=== PATIENT | female | born 1960 | race Caucasian/White ===

== ENCOUNTER 2021-11-16 16:20 | Emergency (ER) | payer BC, SELFPAY ==
[2021-11-16 17:10] VITALS: BP 173/81; PULSE 80; RESP 16; TEMP 36.4; O2SAT 96; BMI 27.6
--- NOTE | 2021-11-16 17:27 | XRR_ITS ---
PROCEDURE INFORMATION: Exam: XR Pelvis Exam date and time: 11/16/2021 6:02 PM Age: 61 years old Clinical indication: Injury or trauma; Fall; Blunt trauma (contusions or hematomas); Bilateral; Pelvic region TECHNIQUE: Imaging protocol: XR pelvis. Views: 1 or 2 view. COMPARISON: No relevant prior studies available. FINDINGS: Bones/joints: Unremarkable. No acute fracture. Soft tissues: Unremarkable. XR/XR pelvis 1-2V* [id number] IMPRESSION: No acute findings.
--- NOTE | 2021-11-16 17:28 | ED_ITS ---
HPI - Back Pain/Injury General: Chief Complaint: Back Pain/Injury Stated Complaint: fall 3 1/2ft on concrete/bottom injury Time Seen by Provider: 11/16/21 17:28 History of Present Illness: 61-year-old female comes in today for complaints of injury to the low back and pelvis area. Patient was sitting in a hammock chair when it came out of the rafter causing her to fall to the ground. Patient lost immediate control of her urine at that time. Patient has been able to maintain control since. Patient denies any prior back injury. Patient appears in moderate pain. Patient has been ambulatory since the incident. Review of Systems General: Reports: 10 or more systems reviewed and unremarkable except in HPI and below Resp: Denies: dyspnea : Reports: difficulty voiding Musc: Reports: back pain Physical Exam Const: COMMON NORMALS: alert HENMT: COMMON NORMALS: atraumatic HEAD & SCALP: atraumatic Neck/C-Spine: COMMON NORMALS: full ROM Resp: COMMON NORMALS: normal respiratory effort Cardio: COMMON NORMALS: regular rate RATE: regular rate Back/Pelvis: LUMBAR SPINE/LOWER BACK: Yes lumbar spinal tenderness Lumbar spinal tenderness location: L5, Yes paraspinal muscle tenderness and Yes straight leg raise negative bilaterally Extremity: COMMON NORMALS: normal to inspection Neuro: SENSORIUM/ORIENTATION: Yes alert Psych: COMMON NORMALS: cooperative Skin: COMMON NORMALS: no rashes or lesions noted GENERAL SKIN EXAM: no rashes or lesions noted Course Vital Signs: Vital signs: Vital Signs Temperature 97.6 F 11/16/21 17:10 Pulse Rate 80 11/16/21 17:10 Respiratory Rate 16 11/16/21 17:10 Blood Pressure 173/81 11/16/21 17:10 Pulse Oximetry 96 11/16/21 17:10 MDM - Back Pain/Injury Medical Decision Making 61-year-old female comes in today with low back pain after a fall. Patient was sent in a hammock swing when it came out of its support causing her to fall directly on her buttocks. Patient had some significant low back pain and reports loss of bladder control. Patient is able to control her bladder at this time. On exam patient has some tenderness around L5. Patient can bear weight. Differential diagnosis includes lumbar vertebra fracture, intervertebral disc disease, facet arthropathy. X-ray of the pelvis indicated no fracture. CT of the lumbar spine noted some mild disc bulging but without significant spinal cord impingement. Reviewed exam with patient with recommendations for treatment and follow-up. Patient reported understanding and agreed to plan. Labs Radiology Impressions Pelvis X-Ray 11/16/21 17:27 IMPRESSION: No acute findings. Lumbar Spine CT 11/16/21 17:39 IMPRESSION: 1. Negative for fracture or dislocation. 2. Scattered vascular calcifications. 3. L3-L4 broad-based disc bulge with mild spinal canal and bilateral foraminal narrowing. 4. L4-L5 broad-based disc bulge with mild spinal canal and bilateral foraminal narrowing. 5. L5/S1 broad-based disc bulge with mild spinal canal and bilateral foraminal narrowing. 6. Small amount of air seen about the left L4-L5 facet joint, nonspecific, negative for fluid collection to suggest an inflammatory or infectious process. Discharge Plan Discharge Patient Disposition: Home Clinical Impression: Discogenic lumbar pain Fall Qualifiers: Encounter type: initial encounter Qualified Code(s): W19.XXXA - Unspecified fall, initial encounter Condition: Stable Prescriptions: New hydrocodone-acetaminophen 5-325 mg tablet 1 tab PO Q8H PRN (Reason: pain (scale score 7-10)) Qty: 10 0RF Discharge Orders: Discharge ED (Routine); Ordered 11/16/21 Ordered By: Weston Zayas Referrals: Olivier Savage NP [Primary Care Provider] - Discharge Diet: Usual diet Discharge Activity: Increase activity as tolerated Patient Instructions: Back Pain (ED), Opioid Safety Activity Restrictions/Additional Instructions: Activity as tolerated. Use acetaminophen and ibuprofen for pain. Use hydrocodone for severe pain. Follow-up with primary care in 2 to 3 days for rec heck. Return to ER for new concerns or worsening symptoms. Coding Level of Care Code ED [employer] F[employer] Exam Comprehensive
--- NOTE | 2021-11-16 17:39 | CTR_ITS ---
PROCEDURE INFORMATION: Exam: CT Lumbar Spine Without Contrast Exam date and time: 11/16/2021 6:15 PM Age: 61 years old Clinical indication: Injury or trauma; Fall; Blunt trauma (contusions or hematomas); Additional info: Fall injury TECHNIQUE: Imaging protocol: Computed tomography images of the lumbar spine without contrast. Radiation optimization: All CT scans at this facility use at least one of these dose optimization techniques: automated exposure control; mA and/or kV adjustment per patient size (includes targeted exams where dose is matched to clinical indication); or iterative reconstruction. COMPARISON: CR (PELVIS, ) 11/16/2021 6:02 PM RADIATION DOSE METRICS: Total DLP (mGy-cm): 2497.32 FINDINGS: Vertebrae: Small amount of air seen about the left L4-L5 facet joint, nonspecific, negative for fluid collection to suggest an inflammatory or infectious process. L1-L2: No significant disc protrusion. No severe spinal canal stenosis. No significant neural foraminal narrowing. L2-L3: No significant disc protrusion. No severe spinal canal stenosis. No significant neural foraminal narrowing. L3-L4: L3-L4 broad-based disc bulge with mild spinal canal and bilateral foraminal narrowing. L4-L5: L4-L5 broad-based disc bulge with mild spinal canal and bilateral foraminal narrowing. L5-S1: L5/S1 broad-based disc bulge with mild spinal canal and bilateral foraminal narrowing. Vasculature: Scattered vascular calcifications. Soft tissues: Unremarkable. CT/CT lumbar spine wo con* [id number] IMPRESSION: 1. Negative for fracture or dislocation. 2. Scattered vascular calcifications. 3. L3-L4 broad-based disc bulge with mild spinal canal and bilateral foraminal narrowing. 4. L4-L5 broad-based disc bulge with mild spinal canal and bilateral foraminal narrowing. 5. L5/S1 broad-based disc bulge with mild spinal canal and bilateral foraminal narrowing. 6. Small amount of air seen about the left L4-L5 facet joint, nonspecific, negative for fluid collection to suggest an inflammatory or infectious process.
[2021-11-16] MEDS: HYDROcodone-acetaminophen 7.5-325 mg Tablet 1 TAB PO (17:48)
== END 2021-11-16 18:53 | disposition home or self-care (01) ==
PROVIDERS: Emergency Provider Nurse Practitioner Family; PCP Clinical Nurse Specialist Adult Health
DX: M51.26 Other intervertebral disc displacement, lumbar region (principal); W08.XXXA Fall from other furniture, initial encounter; R32 Unspecified urinary incontinence
CPT/HCPCS: 72131; 72170; 99283

== ENCOUNTER 2022-01-04 09:40 | Outpatient (CLI) | payer BC, SELFPAY ==
--- NOTE | 2022-01-04 09:48 | CT_ITS ---
WS: [id number] LDCT LUNG CANCER SCREENING HISTORY: NICOTINE DEPENDENCE, CIGARETTES TECHNIQUE: Axial imaging performed from the apices to 1 cm below the costophrenic angles. Coronal and sagittal reformats are submitted with axial MIP series. All CT scans at [facility] use at least one of these dose optimization techniques: automated exposure control; mA and/or kV adjustment per patient size (includes targeted exams where dose is matched to clinical indication); or iterativ e reconstruction. DLP: 71.71 mGy.cm DIvol: Mean CTDIvol: 1.60 (mGy) COMPARISON: None available. Diagnostic quality: Satisfactory Lung Nodules: 2 mm micronodule LEFT upper lobe, image 52 of series 5. No mass or pneumonia. Mild emph ysema. Heart: Mild enlargement the heart chambers. Moderate coronary artery atherosclerosis. Other findings: Prior cholecystectomy. Mild diffuse atherosclerotic calcification throughout the thor acic and suprarenal aorta. Normal size pulmonary artery. Small hiatal hernia. CT/CT lung screening [id number] IMPRESSION: LUNG-RADS: 2-Benign Appearance or Behavior FOLLOW UP: 12 Month: Continue annual screening with LDCT OTHER FINDINGS (S MODIFIER): None.
== END 2022-01-04 09:41 | disposition home or self-care (01) ==
LOC: RAD 09:41
PROVIDERS: PCP Clinical Nurse Specialist Adult Health; Visit Provider Clinical Nurse Specialist Adult Health
DX: Z12.2 Encounter for screening for malignant neoplasm of respiratory organs (principal); F17.210 Nicotine dependence, cigarettes, uncomplicated
CPT/HCPCS: 71271

== ENCOUNTER → 2022-01-19 12:45 | Outpatient (BNVA) | payer BC, SELFPAY | PROVIDERS: PCP Clinical Nurse Specialist Adult Health; Visit Provider Clinical Nurse Specialist Adult Health | DX: E11.9 Type 2 diabetes mellitus without complications (principal); E78.5 Hyperlipidemia, unspecified | CPT/HCPCS: 80053; 80061; 83036; 85025 ==

== ENCOUNTER 2022-02-07 13:48 | Outpatient (CLI) | payer BC, SELFPAY ==
--- NOTE | 2022-02-07 13:54 | MM_ITS ---
WS: [id number] BILATERAL 3D TOMOSYNTHESIS DIGITAL SCREENING MAMMOGRAPHY WITH CAD CLINICAL INFORMATION: SCREENING HISTORY: Screening mammogram. LEFT breast soreness COMPARISON: March 03, 2020 TECHNIQUE: Bilateral CC and MLO views. FINDINGS: Scattered fibroglandular densities bilaterally. Punctate and lucent centered calcifications. Clustere d heterogeneous calcifications outer LEFT breast. Recommend spot magnification views for further eval uation. Slightly spiculated new asymmetric density anterior LEFT breast near the areola measuring 10 mm best seen on the cc view. Recommend LEFT diagnostic mammography and ultrasound for further evaluat ion. RIGHT breast is unchanged and unremarkable. MM/[place] [id number] IMPRESSION: BI-RADS: 0-Incomplete: Need additional imaging evaluation FOLLOW UP: Need Additional Imaging Recommend LEFT breast spot magnification views of the calcifications and LEFT d iagnostic mammography and ultrasound for the o11 mm anterior breast asymmetric density
== END 2022-02-07 13:49 | disposition home or self-care (01) ==
PROVIDERS: PCP Clinical Nurse Specialist Adult Health; Visit Provider Clinical Nurse Specialist Adult Health
DX: Z12.31 Encounter for screening mammogram for malignant neoplasm of breast (principal)
CPT/HCPCS: 77063; 77067

== ENCOUNTER 2022-03-09 08:57 | Outpatient (CLI) | payer BC, SELFPAY ==
--- NOTE | 2022-03-09 09:02 | MM_ITS ---
WS: [id number] LEFT 3D TOMOSYNTHESIS DIGITAL MAMMOGRAPHY WITH CAD CLINICAL INFORMATION: abnormal mammo COMPARISON: February 07, 2022 TECHNIQUE: 3 views of the left breast were obtained. FINDINGS: Scattered fibroglandular densities of the left breast. Punctate and lucent centered calcifications. S table clustered heterogeneous calcifications outer LEFT breast with spot magnification views. A few t iny loosely clustered calcifications in this area. These are probably benign and recommend 6 month fo llow-up to confirm stability. Previously described 10 mm asymmetric density near the areola LEFT breast partially compresses out on today's views. Ultrasound described below. ULTRASOUND BREAST LEFT TECHNIQUE: Ultrasound left breast focused area of concern. CLINICAL INFORMATION: abnormal mammo FINDINGS: Ultrasound LEFT breast at the areola. Indeterminate hypoechoic lesion at 3:00 position anterior depth . This measures approximately 5.9 x 3.8 x 6.9 mm recommend further evaluation with ultrasound-guided biopsy. Additional incidental benign-appearing cysts at the 7:00 position MM/[place] [id number] IMPRESSION: BI-RADS: 4-Suspicious Finding-Biopsy Should Be Considered FOLLOW UP: US Guided Biopsy Recommended Recommend ultrasound-guided biopsy of the anterior hypoechoic LEFT breast lucy rahman Recommend 6 month follow-up spot magnification views of the above-described shashi cifications.
== END 2022-03-09 08:58 | disposition home or self-care (01) ==
LOC: RAD 08:58
PROVIDERS: PCP Clinical Nurse Specialist Adult Health; Visit Provider Clinical Nurse Specialist Adult Health
DX: R92.8 Other abnormal and inconclusive findings on diagnostic imaging of breast (principal); N63.25 Unspecified lump in the left breast, overlapping quadrants
CPT/HCPCS: 76642; 77061

== ENCOUNTER → 2022-04-16 07:57 | Day surgery (SDC) | payer BC, SELFPAY | PROVIDERS: PCP Clinical Nurse Specialist Adult Health; Referring Provider Family Medicine; Visit Provider Student in an Organized Health Care Education/Training Program | DX: M65.342 Trigger finger, left ring finger (principal) | CPT/HCPCS: 73130; J2704; J3010; J3490 ==

== ENCOUNTER 2022-04-17 07:46 | Outpatient (CLI) | payer BC, SELFPAY ==
--- NOTE | 2022-04-17 08:04 | US_ITS ---
WS: [id number] ULTRASOUND LEFT BREAST HISTORY: breast mass, patient presents for possible biopsy. COMPARISON: 03/09/2022 TECHNIQUE: 2-D and Doppler. Previously described hypoechoic area at 3:00 near the areolar is not is concerning on today's examina tion. This appears very similar to normal fibroglandular tissue or may be part of the normal duct sys tem. There is no increased vascularity. This does not appear as concerning today therefore no biopsy will be performed. US/US breast LT limited* [id number] IMPRESSION: BI-RADS: 3-Probably Benign FOLLOW-UP: 6 Month Follow-up 1. No biopsy will be performed today of the LEFT breast hypoechoic area at the nipple. The lesion does not appear as concerning today. 2. Recommend 6 month ultrasound follow-up LEFT breast, limited.
== END 2022-04-17 07:47 | disposition home or self-care (01) ==
PROVIDERS: PCP Clinical Nurse Specialist Adult Health; Visit Provider Family Medicine
DX: N63.25 Unspecified lump in the left breast, overlapping quadrants (principal)
CPT/HCPCS: 76642

== ENCOUNTER 2022-04-25 05:47 | Day surgery (SDC) | payer BC, SELFPAY ==
[2022-04-24 09:34] VITALS: BMI 27.8
[2022-04-25 06:22] LABS: Glucose Point of Care 135 mg/dL (70-110)
[2022-04-25] MEDS: sodium chloride 0.9% 1,000 ML 30 ML IV (06:24)
[2022-04-25] MEDS: acetaminophen 1,000 MG/100 ML PIGGYBACK 400 MG IV (06:24)
[2022-04-25 06:25] VITALS: BP 167/90; PULSE 63; RESP 18; TEMP 36.1; O2SAT 97
[2022-04-25] MEDS: ketorolac 30 mg/mL INJ IVP (06:31)
--- NOTE | 2022-04-25 06:38 | ANES.PREANE2 ---
Pre-Anesthetic Assessment Height/Weight: Height 1.73 m Weight 83.007 kg Temp Pulse Resp BP Pulse Ox O2 Del Method 97.0 F L 63 18 167/90 97 04/25/22 06:25 04/25/22 06:25 04/25/22 06:25 04/25/22 06:25 04/25/22 06:25 04/25/22 06:25 Preop Diagnosis: Left ring trigger finger Operation Date: 04/25/22 07:00 Proposed Procedures p Left Ring Finger Trigger Release [id number](Left) - Black [place], Familial anesthetic complications: NOne Was Beta Geremias taken within 24 hours: N/A Was Clonidine taken within 24 hours: N/A Last intake: Intake Last Liquid Date 04/24/22 Last Liquid Time 21:00 Last Solid Date 04/24/22 Last Solid Time 18:30 Social No alcohol and No tobacco Exam alert, oriented x 3, clear to auscultation bilaterally and regular rate & rhythm Airway Mallampati: Class I Dentition: other (no teeth) Pulmonary Asthma CV/HEM Hypertension Metabolic Diabetes Mellitus Neuropsych Hx CEA Anesthetic Plan ASA status: 3 Anesthesia: MAC Risk of > 500 ml blood loss (7ml/kg in children): No Medications/Allergies Home Medications Medication Instructions Recorded Confirmed Last Taken Type pregabalin 150 mg capsule (Lyrica) 150 mg PO TID #90 caps 02/21/22 04/25/22 Unknown Rx glimepiride 2 mg tablet 2 mg PO DAILY 30 days #60 tabs 04/20/22 04/25/22 04/24/22 Rx aspirin 81 mg tablet,delayed 81 mg PO DAILY 04/24/22 04/25/22 04/10/22 History release (Alicia Low Dose Aspirin) cetirizine 10 mg tablet (Zyrtec) 20 mg PO BID 04/24/22 04/25/22 04/24/22 History cholecalciferol (vitamin D3) 25 25 mcg PO DAILY 04/24/22 04/25/22 04/24/22 History mcg (1,000 unit) tablet (Vitamin D3) docosahexaenoic acid (dha)-epa 120 2 cap PO QPM 04/24/22 04/25/22 04/18/22 History mg-180 mg capsule (Fish Oil) empagliflozin 25 mg tablet 25 mg PO DAILY 10/06/0504/25/22 04/24/22 History (Jardiance) hydrocodone 7.5 mg-acetaminophen 1 tab PO PRN PRN Pain 04/24/22 04/25/22 04/25/22 History 325 mg tablet losartan 100 1 tab PO DAILY 04/24/22 04/25/22 04/24/22 History mg-hydrochlorothiazide 25 mg tablet magnesium chloride 70 mg 500 mg PO DAILY 04/24/22 04/25/22 04/24/22 History (magnesium chloride) tablet,delayed release methocarbamol 750 mg tablet 750 mg PO TID 04/24/22 04/25/22 04/24/22 History naloxone 4 mg/actuation nasal spray 4 mg intranasal PRN PRN Opioid 04/24/22 04/25/22 Unknown History Reversal potassium chloride 10 mEq 10 meq PO DAILY 04/24/22 04/25/22 04/24/22 History tablet,extended release(part/cryst) rosuvastatin 20 mg tablet 20 mg PO DAILY 04/24/22 04/25/22 04/24/22 History Allergies Allergy/AdvReac Type Severity Reaction Status Date / Time oxycodone Allergy Intermediate Unknown Verified 04/25/22 06:00 KEENAN Inhibitors Allergy ALGY-Rash Verified 04/25/22 06:00 Current Medications Generic Name Dose Route Start Last Admin Trade Name Freq PRN Reason Stop Dose Admin Sodium Chloride 1,000 mls @ 30 mls/hr 04/25/22 06:00 04/25/22 06:24 Sodium Chloride 0.9% IV 04/26/22 05:59 30 mls/hr .Q24H DEMETRI Administration PFSH Anesthesia Medical History Peripheral neuropathy Data Anesthesia Cardiac Studies: No Data to Display
--- NOTE | 2022-04-25 06:58 | W.PM.OPSUD ---
Surgery/Procedure H&P Update DATE OF PROCEDURE: April 25, 2022 DATE H&P PERFORMED: 04/16/22 CHANGES TO PREVIOUS DOCUMENTATION: None PREOP DIAGNOSIS: Left ring trigger finger PRIMARY INDICATION FOR PROCEDURE: Left ring trigger trigger finger PLANNED PROCEDURE: Operation Date: 04/25/22 07:00 Proposed Procedures p Left Ring Finger Trigger Release [id number](Left) - Black Mobley DO
[2022-04-25] MEDS: ceFAZolin 2,000 MG in sodium chloride 0.9% (plus) 50 ML 100 MG IV (07:00)
[2022-04-25 07:46] VITALS: BP 122/77; PULSE 60; RESP 14; TEMP 36.7; O2SAT 94
--- NOTE | 2022-04-25 07:48 | PM.OP2 ---
Brief Operative Note Date of procedure: 04/25/22 Pre-op diagnosis: Left ring finger trigger finger Post-op diagnosis: same Procedure Done: left ring finger trigger release Surgeon: Black Mobley Estimated blood loss (mL): 1 Complications: None Post-op Plan: patient recovering in PACU. Patient given appropriate discharge instructions as well as pain medication. Patient will follow-up in the office in 2 weeks. Patient understands if she has any questions he can contact the office. 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
[2022-04-25 07:50] VITALS: BP 146/66; PULSE 66; RESP 14; O2SAT 98
--- NOTE | 2022-04-25 07:51 | PM.PACU ---
PACU note Narrative: Patient recovering well in pacu. Dressing on and in place and clean dry and intact. Brisk capillary refill less than 2 seconds. Patient wiggling fingers. Exam: awake (See report narrative for detailed exam) Disposition: discharged
--- NOTE | 2022-04-25 07:52 | PM.OP ---
Operative Report Date of procedure: April 25, 2022 Pre-op diagnosis: Preop Diagnosis Left ring trigger finger Post-op diagnosis: Same Procedure done: Left ring finger trigger release Left ring finger flexor tendons tenosynovectomy Implants: None Surgeon: Black Mobley DO Estimated blood loss: 1 cc 14 minutes IV fluids: See anesthesia record Complications: None Findings: See operative report narrative Condition: stable Disposition: same day Brief History: Patient is a pleasant 62-year-old female has been worked up in the outpatient setting for left ring finger trigger. Patient's been having locking catching that is been going on for this for 6 months. Patient's failed conservative treatment. On work-up in the outpatient setting and findings confirm preoperative diagnosis. At that point time we discussed her treatment options as far as nonoperative and operative intervention for the left ring finger trigger. At that point time through shared decision-making she elected to proceed with left ring finger trigger release surgery. I detailed the risk benefits complication alternatives to treatment options. She understands the risks and agrees to proceed with surgical intervention. Consent was obtained in the office. Patient understands and agrees with current plan. All questions answered. She elects proceed with surgical intervention. Procedure: Patient was seen evaluate in the preoperative holding area. Consent was reviewed with patient. Correct extremity was then marked. Patient was then seen evaluated by the anesthesia department as well as the preoperative team. Once ready for surgery she was taken back to the operative suite placed in supine position all bony prominences were well-padded and patient was appropriately secured to the table. Her left upper extremity was then placed on an armboard. She then underwent anesthesia per the anesthesia department once appropriately anesthetized the left upper extremity had a nonsterile tourniquet applied to the left upper extremity arm. This point time the left upper extremity was then prepped and draped in standard orthopedic fashion. Final timeout performed. Patient received appropriate preoperative antibiotics. Esmarch tourniquet was used exsanguinate the left upper extremity. Tourniquet was insufflated to 250 mmHg. Prior to incision patient received local injection for pain control for left ring finger 5 cc of ropivacaine and bupivacaine. Standard longitudinal incision roughly 1.5 cm in length was made centering over the A1 stephane of the left ring finger. This point time sharp scalpel excision through skin subcutaneous tissue I then utilized dissection scissors to spread longitudinally in the plane of the flexor tendon. Again directly over the A1 stephane. I placed [place] retractors to protect the neurovascular bundles radially and ulnarly. At this point time the sole of the A1 stephane proximally which did Littler dissection scissors were used to split this under direct visualization with loupe magnification of the A1 stephane to its distal extent. This point time it was noted patient did have a thickened A1 stephane and as a result after the A1 stephane was completely released I then thoroughly inspected for further areas of triggering. At this point time a utilized a rag nail to flex the tendons out of the incision site and patient still have triggering that was noted. This was checked multiple times to look for any significant masses or cysts within the flexor tendon sheath. Flexor tendons were noted both FDS and FDP had significant amounts of synovium that was inflamed around them. I utilized my pickups and dissection scissors to perform a flexor tendon Jazmine synovectomy of both tendons to the bulk any thick synovial tissue that could be causing triggering. At this point I used Ragnell's once again and still noted triggering. At this point time it feels as though I need to extend my incision distally. I created began a Pratima incision extending this to the level of the MP flexion crease of the ring finger. Direct visualization of A1 and A2 pulleys were noted. A1 was completely released as result I then subsequently released 40% of the A2 stephane in order to aid in relief of patient's triggering. At this point time I utilized for acne also patient had complained relief of patient's ring finger triggering. Patient did have appropriate decompression with stabilization of the residual A2 stephane with no evidence of bowstringing. At this point time given this completed relief of patient's triggering of the left ring finger when I used Ragnell's to pull both tendons it out of the incision this completed Trigger finger release no further needed release of the A2 was necessary for excision of of the ulnar slip of the FDS was left alone. At this point time wound bed was then thoroughly irrigated. I then deflated the tourniquet. Bipolar lecture cautery was used for hemostasis. I then utilized interrupted nylon sutures to close the skin. Incision was then dressed with bulky soft dressing with Xeroform 4 x 4's ABD Curlex and Jorge wrap. Patient was then awakened from anesthesia and taken to PACU in stable condition. Disposition patient recovered in PACU. Patient will be given appropriate discharge instructions as well as pain medication postoperatively. Patient will discharge later today. We will have patient follow-up with us in 2 weeks for postoperative follow-up. Encourage range of motion and weightbearing as tolerated to the left hand. Patient or since she has any questions she can contact the office. all questions answered at this time.
[2022-04-25 07:55] VITALS: BP 153/81; PULSE 55; RESP 16; TEMP 36.6; O2SAT 97
[2022-04-25 08:04] VITALS: BP 167/81; PULSE 62; RESP 18; TEMP 36.1; O2SAT 98
[2022-04-25 08:24] VITALS: BP 165/81; PULSE 50; RESP 18; O2SAT 94
--- NOTE | 2022-04-25 13:49 | ANE.PACU2 ---
Inpatient post-anesthesia follow up: Airway intact: Yes Vital signs: Temperature 97.0 F Pulse Rate 50 Respiratory Rate 18 Blood Pressure 165/81 Pulse Oximetry 94 Oxygen Delivery Me thod Room Air Oxygen Flow Rate Fraction of Inspir ed Oxygen Hydration adequate: Yes Nausea and vomiting: No Pain level: 1 Mental status: Baseline
== END 2022-04-25 08:29 | disposition home or self-care (01) ==
PROVIDERS: PCP Clinical Nurse Specialist Adult Health; Visit Provider Student in an Organized Health Care Education/Training Program
PROC: (CPT 26055; principal; 2022-04-25 07:00)
DX: M65.342 Trigger finger, left ring finger (principal); I10 Essential (primary) hypertension; E11.42 Type 2 diabetes mellitus with diabetic polyneuropathy
CPT/HCPCS: 26055; 26145; 36416; 82962; J1885; J2795; J3490; J7030

== ENCOUNTER → 2022-05-29 10:46 | Outpatient (BNVA) | payer BC, SELFPAY | PROVIDERS: PCP Clinical Nurse Specialist Adult Health; Visit Provider Physician Assistant | DX: M47.818 Spondylosis without myelopathy or radiculopathy, sacral and sacrococcygeal region (principal); M51.37 Other intervertebral disc degeneration, lumbosacral region; M47.816 Spondylosis without myelopathy or radiculopathy, lumbar region; M85.88 Other specified disorders of bone density and structure, other site | CPT/HCPCS: 72110 ==

== ENCOUNTER 2022-07-19 10:21 | Outpatient (CLI) | payer BC, SELFPAY ==
--- NOTE | 2022-07-19 11:45 | MR_ITS ---
WS: [id number] MRI LUMBAR SPINE NONCONTRAST TECHNIQUE: Sagittal T1, T2 and STIR imaging. Axial T1 and T2 imaging. CLINICAL INFORMATION: PAIN COMPARISON: None. FINDINGS: Mild lumbar curve. No acute compression. No high-grade central canal stenosis. Mild annular bulging L 3-L4 and L4-L5. L1-L2: Mild facet arthropathy. Spinal canal and foramen are patent. L2-L3: No significant disc bulging. Mild facet arthropathy. Spinal canal and foramen are patent. L3-L4: Trace anterolisthesis. Disc bulging in combination with facet arthropathy and ligamentum flavu m hypertrophy results in moderate central canal stenosis. Impingement traversing L4 nerve roots bilat erally. Small RIGHT foraminal protrusion slightly impinges the exiting RIGHT L3 nerve root. LEFT fora men is patent. Moderate facet arthropathy. L4-L5: Mild annular bulging with slight effacement of ventral thecal sac. Moderate facet arthropathy. LEFT eccentric annular fissure. LEFT foraminal protrusion slightly impinges the exiting LEFT L4 nerv e root. L5-S1: Mild annular bulging with slight effacement of the ventral thecal sac. Spinal canal and forame n are patent. Moderate facet arthropathy. Visualized pelvic bony structures: Normal. Paravertebral soft tissues: Normal. Prior fusion in the cervical spine at C5-C6. Tiny disc protrusions at C4-C5 and C6-C7. MR/MR lumbar spine wo con* [id number] IMPRESSION: 1. Mild lumbar curve. No acute compression. 2. Trace anterolisthesis L3 on L4 with moderate central canal stenosis at this level. Impingement traversing L4 nerve roots bilaterally. 3. Small RIGHT foraminal protrusion L3-L4 impinges the exiting RIGHT L3 nerve root. 4. Small LEFT foraminal protrusion L4-L5 with a small annular fissure slightly impinges the exiting LEFT L4 nerve root. 5. Moderate facet arthropathy L3-L4 L4-L5 and L5-S1.
== END 2022-07-19 10:22 | disposition home or self-care (01) ==
PROVIDERS: PCP Clinical Nurse Specialist Adult Health; Visit Provider Physician Assistant
DX: M51.26 Other intervertebral disc displacement, lumbar region (principal); M47.816 Spondylosis without myelopathy or radiculopathy, lumbar region; M47.817 Spondylosis without myelopathy or radiculopathy, lumbosacral region; I10 Essential (primary) hypertension; E78.00 Pure hypercholesterolemia, unspecified; E11.9 Type 2 diabetes mellitus without complications
CPT/HCPCS: 72148; 80053; 80061; 83036; 83880; 85025

== ENCOUNTER 2022-07-25 13:24 | Outpatient (CLI) | payer BC, SELFPAY | END 2022-07-25 13:25 | disposition home or self-care (01) | PROVIDERS: PCP Clinical Nurse Specialist Adult Health; Visit Provider Clinical Nurse Specialist Adult Health | DX: J42 Unspecified chronic bronchitis (principal) | CPT/HCPCS: 94010; 94726; 94729 ==

== ENCOUNTER 2022-08-29 14:29 | Outpatient (CLI) | payer BC, SELFPAY ==
--- NOTE | 2022-08-29 15:00 | USCV_ITS ---
Jazmine Figueredo Age: 62 Gender: F : 1960 Exam Date: 08/29/2022 14:48 Ordering Phys: Olivier Savage NP Technologist: Alfonzo Chadwick Exam Location: [facility] [place] Indication: SOB and LE EDEMA BP: 196 / 83 HR: 69 Rhythm: Sinus Technical Quality: Adequate MEASUREMENTS (Male / Female) Normal Values 2D ECHO LV Diastolic Diameter PLAX 5.2 cm 4.2 - 5.9 / 3.9 - 5.3 cm LV Systolic Diameter PLAX 3.1 cm IVS Diastolic Thickness 1.0 cm 0.6 - 1.0 / 0.6 - 0.9 cm IVS Systolic Thickness 1.1 cm LVPW Diastolic Thickness 1.0 cm 0.6 - 1.0 / 0.6 - 0.9 cm LVPW Systolic Thickness 1.6 cm LVOT Diameter 2.0 cm LV Ejection Fraction 2D Teich 69.9 % LV Ejection Fraction MOD 2C 72.7 % LV Ejection Fraction 2C AL 72.6 % LA Diameter 3.3 cm LA Width 3.6 cm LA Height 4.7 cm RA Width 3.2 cm RA Height 3.9 cm Aorta at Sinotubular Diameter 2.2 cm IVC Diameter 1.5 cm M-MODE Aortic Annulus Diameter 2.1 cm LA Ao Ratio MM 1.5 MV E Point Septal Separation 0.3 cm DOPPLER AV Peak Velocity 187.3 cm/s LVOT Peak Velocity 97.0 cm/s AV Area Cont Eq vti 1.9 cm squared AV Area Cont Eq pk 1.7 cm squared MV Peak Velocity 99.0 cm/s MV Area PHT 3.9 cm squared Mitral E to A Ratio 0.9 MV E' Velocity 42.5 cm/s Mitral E to MV E' Ratio 7.4 Mitral E to LV E' Lateral Ratio 6.6 Mitral E to LV E' Septal Ratio 8.5 TR Peak Velocity 221.0 cm/s TR Peak Gradient 19.5 mmHg TR Mean Velocity 169.4 cm/s TR Mean Gradient 13.8 mmHg TR Velocity Time Integral 65.3 cm Right Atrial Pressure 3.0 mmHg Pulmonary Artery Systolic Pressu 22.5 mmHg PV Peak Velocity 117.0 cm/s RV Acceleration Time 0.1 s RV Ejection Time 0.3 s RV AcT/ET 0.5 FINDINGS Left Ventricle Normal left ventricular size and systolic function, EF 67 %. Mild left ventricular hypertrophy. Grade I/IV diastolic dysfunction (abnormal relaxation filling pattern), normal to mildly elevated filling pressures. No regional wall motion abnormalities. Right Ventricle The right ventricle is normal in size and function. Right Atrium The right atrium is normal in size. Left Atrium The left atrium is normal in size. Mitral Valve Thickened mitral valve. Mild mitral annular calcification. Trace mitral valve regurgitation. Aortic Valve Thickened aortic valve. Tricuspid Valve Mild tricuspid valve regurgitation. Pulmonic Valve No gross abnormalities noted Pericardium Normal pericardium without effusion. Aorta Normal ascending aorta dimension. IVC The inferior vena cava appears normal. CONCLUSIONS Normal left ventricular size and systolic function, EF 67 %. Mild left ventricular hypertrophy. Grade I/IV diastolic dysfunction (abnormal relaxation filling pattern), normal to mildly elevated filling pressures. No regional wall motion abnormalities. Thickened mitral valve. Mild mitral annular calcification. Trace mitral valve regurgitation. Thickened aortic valve. Mild tricuspid valve regurgitation. Estimated pulmonary peak systolic pressure of 23 mmHg There is no pericardial effusion. There are no intracardiac masses. No similar previous studies are available for comparison Dr Devaughn Pokl MD [facility] (Electronically Signed) Final Date: 29 August 2022 18:15 S
== END 2022-08-29 14:30 | disposition home or self-care (01) ==
LOC: RAD 14:31
PROVIDERS: PCP Clinical Nurse Specialist Adult Health; Visit Provider Clinical Nurse Specialist Adult Health
DX: R06.02 Shortness of breath (principal); R60.0 Localized edema; I08.3 Combined rheumatic disorders of mitral, aortic and tricuspid valves
CPT/HCPCS: 93306

== ENCOUNTER → 2022-10-04 11:06 | Outpatient (BNVA) | payer BC, SELFPAY | PROVIDERS: PCP Clinical Nurse Specialist Adult Health; Visit Provider Anesthesiology Pain Medicine | DX: M54.50 Low back pain, unspecified (principal); M79.605 Pain in left leg | CPT/HCPCS: 73502 ==

== ENCOUNTER 2022-10-31 16:20 | Outpatient (CLI) | payer BC, SELFPAY | END 2022-10-31 16:21 | disposition home or self-care (01) | LOC: SLEEP 11-01 11:46 | PROVIDERS: PCP Clinical Nurse Specialist Adult Health; Visit Provider Specialist | DX: G47.33 Obstructive sleep apnea (adult) (pediatric) (principal); R06.83 Snoring; R09.02 Hypoxemia | CPT/HCPCS: G0399 ==

== ENCOUNTER → 2022-11-06 07:54 | Outpatient (BNVA) | payer BC, SELFPAY | PROVIDERS: PCP Clinical Nurse Specialist Adult Health; Visit Provider Physician Assistant | DX: M54.2 Cervicalgia (principal) | CPT/HCPCS: 72050 ==

== ENCOUNTER 2022-11-23 08:37 | Outpatient (CLI) | payer BC, SELFPAY ==
--- NOTE | 2022-11-23 08:45 | MR_ITS ---
WS: [id number] MRI CERVICAL SPINE NONCONTRAST HISTORY: bilateral arm numbness COMPARISON: Cervical spine radiographs 11/06/2022 Technique: Multiplanar, multisequence noncontrast imaging of the cervical spine. Very slight straightening of the normal cervical lordosis with reversal at C5-6. There is a C5-6 inte rbody spacer. Less than 2 mm anterolisthesis of C4. No acute fracture. Signal within the cervical cord is normal. Visualized posterior fossa is unremarkable. Craniocervical junction, C1 and C2 relationship, odontoid process and soft tissues are normal. C2-C3: Normal. C3-C4: Small LEFT foraminal osteophyte with minimal LEFT foraminal narrowing. No high-grade stenosis. C4-C5: Diffuse annular disc bulging and osteophytic ridging. Mild bilateral facet joint arthritis. Bi lateral foraminal disc osteophyte complex contributes to moderate foraminal stenosis and mild central stenosis. C5-C6: Osteophytic ridging with mild encroachment upon the ventral thecal sac. No high-grade stenosis . Mild central and foraminal stenosis. C6-C7: Moderate to large LEFT foraminal disc protrusion and small osteophytes. There is significant n arrowing of the LEFT foramen and displacement of the nerve root posteriorly. Severe LEFT and moderate RIGHT foraminal stenosis. C7-T1: Mild disc bulge. Paravertebral soft tissues are normal. MR/MR cervical spin wo con* [id number] IMPRESSION: 1. Status post prior interbody spacer at C5-6. 2. Severe LEFT foraminal stenosis at C6-7 due to disc osteophyte complex causi ng displacement of the nerve root. 3. Moderate RIGHT foraminal stenosis at C6-7 due to disc and osteophyte diseas e. 4. Moderate foraminal and mild central stenosis at C4-5 due to small disc oste ophyte complexes. 5. Mild central and bilateral foraminal stenosis at C5-6.
== END 2022-11-23 08:38 | disposition home or self-care (01) ==
LOC: RAD 08:41
PROVIDERS: PCP Clinical Nurse Specialist Adult Health; Visit Provider Physician Assistant
DX: M54.2 Cervicalgia (principal); R20.0 Anesthesia of skin; R20.2 Paresthesia of skin; M48.02 Spinal stenosis, cervical region
CPT/HCPCS: 72141

== ENCOUNTER 2022-11-29 10:31 | Outpatient (CLI) | payer BC, SELFPAY | END 2022-11-29 10:32 | disposition home or self-care (01) | LOC: SPT 10:31 | PROVIDERS: PCP Clinical Nurse Specialist Adult Health; Visit Provider Physician Assistant | DX: Z46.89 Encounter for fitting and adjustment of other specified devices (principal); G56.02 Carpal tunnel syndrome, left upper limb | CPT/HCPCS: 97760; L3908 ==

== ENCOUNTER → 2022-12-20 16:08 | Outpatient (BNVA) | payer BC, SELFPAY | PROVIDERS: PCP Clinical Nurse Specialist Adult Health; Visit Provider Orthopaedic Surgery | DX: Z01.818 Encounter for other preprocedural examination (principal); M54.50 Low back pain, unspecified; M79.605 Pain in left leg; M48.062 Spinal stenosis, lumbar region with neurogenic claudication | CPT/HCPCS: 36415; 80053; 81003; 85025 ==

== ENCOUNTER → 2022-12-26 11:42 | Outpatient (BNVA) | payer BC, SELFPAY | PROVIDERS: PCP Clinical Nurse Specialist Adult Health; Visit Provider Family Medicine | DX: Z01.818 Encounter for other preprocedural examination (principal) | CPT/HCPCS: 83036 ==

== ENCOUNTER 2023-01-11 07:30 | Day surgery (SDC) | payer BC, SELFPAY ==
[2023-01-10 08:53] VITALS: BMI 30.8
[2023-01-11] VITALS (11 sets, daily range): BP systolic 137–185; BP diastolic 68–110; PULSE 59–90; RESP 14–18; TEMP 36.1–36.8; O2SAT 91–100
--- NOTE | 2023-01-11 | XR_ITS ---
WS: [id number] Exam: XR lumbar spine 1V [id number] Date/Time of Exam: 01/11/2023 12:00 AM Reason For Exam: ADDY Single anterior posterior C-arm image of the lower lumbar spine is submitted. The image was obtained for localization purposes.
[2023-01-11] MEDS: sodium chloride 0.9% 1,000 ML 30 ML IV (08:46)
[2023-01-11 09:05] LABS: Glucose Point of Care 144 mg/dL (70-110)
--- NOTE | 2023-01-11 10:00 | ANES.PREANE2 ---
Pre-Anesthetic Assessment Height/Weight: Height 1.7 m Weight 89.358 kg Temp Pulse Resp BP Pulse Ox O2 Del Method 97.3 F L 59 L 18 172/81 99 Room Air 01/11/23 08:30 01/11/23 08:30 01/11/23 08:30 01/11/23 08:30 01/11/23 08:30 01/11/23 08:30 Preop Diagnosis: Lumbar stenosis with neurogenic claudication Operation Date: 01/11/23 09:35 Proposed Procedures p left L3-4 mill invasive decompression:35515,M54.0,M79.605,M48.062(Left) - Austin Pelaez, Familial anesthetic complications: Nnone Was Beta Geremias taken within 24 hours: N/A Was Clonidine taken within 24 hours: N/A Last intake: Intake Last Liquid Date 01/10/23 Last Liquid Time 23:30 Last Solid Date 01/10/23 Last Solid Time 20:00 Social No alcohol and No tobacco Exam alert, oriented x 3, clear to auscultation bilaterally and regular rate & rhythm Airway Mallampati: Class II Dentition: other (no teeth) Pulmonary Chronic Obstructive Pulmonary Disease and Sleep Apnea CV/HEM Hypertension Metabolic Diabetes Mellitus Anesthetic Plan ASA status: 3 Anesthesia: General Risk of > 500 ml blood loss (7ml/kg in children): No Medications/Allergies Home Medications Medication Instructions Recorded Confirmed Last Taken Type aspirin 81 mg tablet,delayed 81 mg PO DAILY 04/24/22 01/10/23 01/02/23 History release (Alicia Low Dose Aspirin) cetirizine 10 mg tablet (Zyrtec) 20 mg PO BID 04/24/22 01/10/23 01/10/23 History cholecalciferol (vitamin D3) 25 25 mcg PO DAILY 04/24/22 01/10/23 01/10/23 History mcg (1,000 unit) tablet (Vitamin D3) docosahexaenoic acid (dha)-epa 120 2 cap PO QPM 04/24/22 01/10/23 12/26/22 History mg-180 mg capsule (Fish Oil) hydrocodone 7.5 mg-acetaminophen 1 tab PO PRN PRN Pain 04/24/22 01/10/23 01/10/23 History 325 mg tablet magnesium chloride 70 mg 500 mg PO DAILY 04/24/22 01/10/2301/10/23 History (magnesium chloride) tablet,delayed release naloxone 4 mg/actuation nasal spray 4 mg intranasal PRN PRN Opioid 04/24/22 01/10/23 Unknown History Reversal multivitamin 1 tab PO DAILY 06/18/22 01/10/23 Unknown History epinephrine 0.3 mg/0.3 mL 0.3 mg (0.3 mL) IM Q4H PRN 07/18/22 01/10/23 Unknown Rx injection, auto-injector anaphylaxis #2 ea lactulose 10 gram/15 mL oral 10 g (15 mL) PO DAILY PRN 07/18/22 01/10/23 01/07/23 Rx solution constipation #473 mL albuterol sulfate 90 mcg/actuation 2 inh inhalation QID PRN shortness 08/01/22 01/11/23 01/04/23 Rx aerosol inhaler of breath or wheezing #8.5 grams MARIJUANA inhalation 08/28/22 12/26/22 Unknown History zinc gluconate 50 mg tablet 50 mg PO DAILY 08/28/22 01/10/23 01/10/23 History empagliflozin 25 mg tablet 25 mg PO DAILY #90 tabs 08/31/22 01/10/23 01/10/23 Rx (Jardiance) glimepiride 2 mg tablet 2 mg PO BID #180 tabs 08/31/22 01/10/23 01/09/23 Rx linaclotide 290 mcg capsule 290 mcg PO DAILY #90 caps 08/31/22 01/10/23 01/10/23 Rx (Linzess) losartan 100 1 tab PO DAILY #90 tabs 08/31/22 01/10/23 01/10/23 Rx mg-hydrochlorothiazide 25 mg tablet methocarbamol 750 mg tablet 750 mg PO TID #90 tabs 08/31/22 01/10/23 01/10/23 Rx potassium chloride 10 mEq 10 meq PO DAILY #90 tabs 08/31/22 01/10/23 01/10/23 Rx tablet,extended release(part/cryst) rosuvastatin 20 mg tablet 20 mg PO DAILY #90 tabs 08/31/22 01/10/23 01/10/23 Rx metoprolol tartrate 25 mg tablet 25 mg PO BID 90 days #180 tabs 10/03/22 01/10/23 01/11/23 06:30 Rx CPAP (Auto-Titrating CPAP) #1 ea 11/27/22 12/26/22 Unknown Rx Cock Up Splint #1 ea 11/29/22 12/26/22 Unknown Rx Allergies Allergy/AdvReac Type Severity Reaction Status Date / Time oxycodone Allergy Intermediate Unknown Verified 01/01/23 05:46 KEENAN Inhibitors Allergy ALGY-cough Verified 01/01/23 05:46 Current Medications Generic Name Dose Route Start Last Admin Trade Name Freq PRN Reason Stop Dose Admin Sodium Chloride 1,000 mls @ 30 mls/hr 01/11/23 08:30 01/11/23 08:46 Sodium Chloride 0.9% IV 01/12/23 08:29 30 mls/hr .Q24H DEMETRI Administration PFSH Anesthesia Medical History Allergy-induced asthma Chronic bronchitis Coronary artery disease Essential hypertension Generalized osteoarthritis GERD (gastroesophageal reflux disease) Hypercholesterolemia Irritable bowel syndrome with constipation Lung nodule Peripheral neuropathy Screening for colon cancer Smoking history Tinnitus Type 2 diabetes mellitus Surgical History History of left-sided carotid endarterectomy Hx of appendectomy Hx of cervical discectomy Hx of section Hx of cholecystectomy Hx of knee surgery Social History Smoking and tobacco status: former smoker Quit status (tobacco): has quit using tobacco Year quit tobacco: 2008 Former quit date comment: 40 pack year history Alcohol intake: former Substance/Drug Use: current Substance/Drug use frequency: Special occassions/opportunity only Other details last substance use: marijuana Data Anesthesia Cardiac Studies: Echocardiogram 08/29/22
--- NOTE | 2023-01-11 10:11 | W.PM.OPSUD ---
Surgery/Procedure H&P Update DATE OF PROCEDURE: January 11, 2023 DATE H&P PERFORMED: 12/26/22 H&P UPDATE INFORMATION: I have reviewed H&P completed within last 30 days, I have examined patient prior to procedure and No changes to prior documentation PREOP DIAGNOSIS: Lumbar stenosis with neurogenic claudication PLANNED PROCEDURE: Operation Date: 01/11/23 09:35 Proposed Procedures p left L3-4 mill invasive decompression:83553,M54.0,M79.605,M48.062(Left) - Austin Pelaez DO
[2023-01-11] MEDS: ceFAZolin 2,000 MG in sodium chloride 0.9% (plus) 50 ML 100 MG IV (10:21)
[2023-01-11] MEDS: lidocaine-epi 1% 20 mL INJ INJECTION (11:00)
--- NOTE | 2023-01-11 11:28 | PC.NURSE ---
Pt arrived to PACU, resting comfortably, O2 at 6L/min via simple mask. Dressing to lower back C/D/I, able to move all extremities. Pt denies any pain or nausea at this time.
--- NOTE | 2023-01-11 11:29 | PM.OP ---
Operative Report Date of procedure: January 11, 2023 Pre-op diagnosis: Preop Diagnosis Lumbar stenosis with neurogenic claudication Post-op diagnosis: same Procedure done: 1. L3/4 laminectomy with partial facetectomy Surgeon: Austin Pelaez Automation Software Engineer: none Estimated blood loss (mL): 5 Procedure: L3-4 laminectomy with partial facetectomy Patient is brought to the operative suite. After undergoing anesthesia they are placed in the prone position. All areas of impingement are well padded. Patient is then prepped and draped in the normal sterile fashion. A skin incision is made over the L3/4 level. This is confirmed under c-arm guidance. A series of dilators are passed and the tubular retractor is docked on the L3 lamina. A bovie is used to clear the soft tissue off the lamina and the L 3/4 facet joint. A high speed stephanie is then used to perform the laminectomy and take down the medial aspect of the L 3/4 facet joint. A kerrison rongeure was then used to take down the remaining lamina and smooth the edge of the laminectomy up to the point where the ligamentum flavum attaches. Attention was then brought to the medial aspect of the facet joint. The remaining medial aspect of the superior and inferior aspect of the facet joint were taken down with the kerrison from the pedicle of L3 to L 4. The facet joint had significant hypertrophy. Attention was then brought to the Ligamentum Flavum. The ligament was taken down from the lamina of L3 to L4 and out medially to the remaining facet joint. The ligament was thick. The dura was then exposed. The dura was in good repair. The L3 nerve was then traced with a curette out the L3/4 foramen and found to be adequately decompressed. The L4 nerve was traced with a curette around the L4 pedicle. The lateral recess was opened with a kerrison helping to further decompress the L4 nerve. Wound is then irrigated copiously with saline and surgiflo is used to stop any bleeding. The tubular retractor is removed and the wound is closed with vicryl and monocryl suture. Glue is then used to protect the wound. A sterile dressing is then placed. Patient was then placed in the supine position and transferred to the PACU in stable condition.
[2023-01-11] MEDS: labetalol 5 mg/mL SDV 20mL 10 MG IVP (11:45)
--- NOTE | 2023-01-11 11:45 | PC.NURSE ---
Pt blood pressures elevated, Dr Bennett notified, new orders received and administered, will monitor for effectiveness.
[2023-01-11] MEDS: HYDROcodone-acetaminophen 10-325 mg Tablet 1 TAB PO (12:28)
--- NOTE | 2023-01-11 14:19 | ANE.PACU2 ---
Inpatient post-anesthesia follow up: Airway intact: Yes Vital signs: Temperature 98.3 F Pulse Rate 59 Respiratory Rate 16 Blood Pressure 145/74 Pulse Oximetry 96 Oxygen Delivery Me thod Room Air Oxygen Flow Rate 6 Fraction of Inspir ed Oxygen Hydration adequate: Yes Nausea and vomiting: No Pain level: 1 Mental status: Baseline
--- NOTE | 2023-04-17 | XR_ITS ---
WS: [id number] EXAMINATION: XR cervical spine 3V* [id number] FOR EXAM: cervical acdf, or pic COMPARISON: None available. FINDINGS/IMPRESSION: Fluoroscopy time 12.9 seconds Intraoperative C arm views demonstrate stable endotracheal tube position. Anterior compression platin g with multiple paired screws at each vertebral level are imaged beginning at C4 and traversing the r emainder of the cervical spine at the mid plate level/spacers of 2 different types are demonstrated.
== END 2023-01-11 12:45 | disposition home or self-care (01) ==
PROVIDERS: PCP Clinical Nurse Specialist Adult Health; Visit Provider Orthopaedic Surgery
PROC: (CPT 63005; principal; 2023-01-11 09:35)
DX: M48.062 Spinal stenosis, lumbar region with neurogenic claudication (principal); J44.9 Chronic obstructive pulmonary disease, unspecified; G47.30 Sleep apnea, unspecified; I10 Essential (primary) hypertension; E11.9 Type 2 diabetes mellitus without complications; Z79.82 Long term (current) use of aspirin; Z79.84 Long term (current) use of oral hypoglycemic drugs; K21.9 Gastro-esophageal reflux disease without esophagitis; Z87.891 Personal history of nicotine dependence
CPT/HCPCS: 63047; 36416; 72020; 76000; 82962; J0690; J1100; J2405; J2704; J2710; J3010; J3490; J7030

== ENCOUNTER 2023-01-12 22:19 | Emergency (ER) | payer BC, SELFPAY ==
[2023-01-12 22:38] VITALS: BP 138/64; PULSE 82; RESP 14; TEMP 37.4; O2SAT 94; BMI 31.0
[2023-01-13] MEDS: dexamethasone 4 mg Tablet 10 MG PO (00:04)
[2023-01-13] MEDS: ondansetron 4 MG Tablet PO (00:06)
[2023-01-13] MEDS: HYDROmorphone 1 mg/mL INJ 1 mL IM (00:07)
[2023-01-13] MEDS: ketorolac 30 mg/mL INJ IM (00:09)
[2023-01-13] MEDS: fentaNYL 50 mcg Patch 1 PATCH TRANSDERMA (00:35)
--- NOTE | 2023-01-13 00:36 | ED_ITS ---
HPI - Back Pain/Injury General: Chief Complaint: Back Pain/Injury Stated Complaint: back/hip pain Time Seen by Provider: 01/12/23 23:02 History of Present Illness: 62-year-old female who had lumbar laminectomy yesterday. She notes that today she began to have more pain, and has steadily worsened throughout the first part of the day. Is remained stable since then, but it is quite intense she says. Pain is such that it is hard for her to move and walk at this point. She took hydrocodone 10 mg without much relief. She is experiencing some right-sided radicular symptoms. Her radicular symptoms were on the left side prior to her surgery. No foot drop. No new loss of bowel or bladder function. No fever. No hemorrhage from her incision, and the original bandages still in place. MD elicited complaint: back pain Pertinent past history: prior back pain and back surgery Onset (ago): hour(s) Timing: constant Severity: moderate Similar Symptoms Previously: Yes Quality: stabbing Location: lumbar spine Radiation: right upper leg (Right thigh) Exacerbating factors: movement Relieving factors: immobilization Context: other Associated symptoms: Deny abdominal pain, chills, dysuria, fever(s) or vomiting Review of Systems Const: Denies: fever(s) or chills Card: Denies: chest pain Resp: Denies: dyspnea GI: Denies: abdominal pain or vomiting : Denies: dysuria [facility] ED PFSH: Medical History Allergy-induced asthma Chronic bronchitis Coronary artery disease Essential hypertension Generalized osteoarthritis GERD (gastroesophageal reflux disease) Hypercholesterolemia Irritable bowel syndrome with constipation Lung nodule Peripheral neuropathy Screening for colon cancer Smoking history Tinnitus Type 2 diabetes mellitus Surgical History History of left-sided carotid endarterectomy Hx of appendectomy Hx of cervical discectomy Hx of section Hx of cholecystectomy Hx of knee surgery Social History Smoking and tobacco status: former smoker Quit status (tobacco): has quit using tobacco Year quit tobacco: 2008 Former quit date comment: 40 pack year history Alcohol intake: former Substance/Drug Use: current Substance/Drug use frequency: Special occassions/opportunity only Other details last substance use: marijuana Physical Exam Const: COMMON NORMALS: no acute distress GENERAL APPEARANCE: cooperative; not ill appearing and not frail appearing HENMT: COMMON NORMALS: normocephalic, atraumatic and Normal external nose present HEAD & SCALP: normocephalic and atraumatic FACE & SINUS: normal facial exam and face symmetric NOSE: Normal external nose present Eye: COMMON NORMALS: Equal, round and reactive pupils present and EOMs intact bilaterally PUPIL: Yes Equal, round and reactive pupils present Neck/C-Spine: GENERAL: Yes trachea midline Chest: CHEST: Yes Symmetrical chest wall rise Resp: COMMON NORMALS: normal respiratory effort, No retractions, No use of accessory muscles and clear to auscultation bilaterally AUSCULTATION: clear to auscultation bilaterally Cardio: COMMON NORMALS: regular rate and regular rhythm RATE: regular rate RHYTHM: regular rhythm GI: COMMON NORMALS: Normal to inspection, nondistended, normoactive bowel sounds present Back/Pelvis: OTHER: Exam of the lumbar spine reveals bandage incision, that is clean. No surrounding cellulitis. No hemorrhage present no increased tenderness over incision area. Tenderness is over the right sacroiliac joint, lumbosacral junction. Some radicular pain on right leg raise testing. Extremity: COMMON NORMALS: no pedal edema Neuro: TRICE COMA SCALE: document GCS findings Stovall coma scale eye opening: Spontaneous Stovall coma scale verbal response: Orientated Stovall coma scale motor response: Obey commands Stovall coma scale total score: 15 SENSORY EXAM: Yes extremities (intact) Psych: COMMON NORMALS: speech normal SPEECH: Yes normal speech Skin: COMMON NORMALS: no rashes or lesions noted GENERAL SKIN EXAM: no rashes or lesions noted Course Vital Signs: Vital signs: Vital Signs Temperature 99.4 F 01/12/23 22:38 Pulse Rate 82 01/12/23 22:38 Respiratory Rate 14 01/12/23 22:38 Blood Pressure 138/64 01/12/23 22:38 Pulse Oximetry 94 01/12/23 22:38 Oxygen Delivery Me thod Room Air 01/12/23 22:38 MDM - Back Pain/Injury Medical Decision Making Patient is having increased pain postoperatively. She is afebrile. Clinically she looks good. No significant weakness. This seems to be more of a pain control issue. She is given injections, a Duragesic patch will be placed on the patient for 3 days worth of pain relief, she may use hydrocodone on top of this when she knows how the Duragesic patch will affect her. She is complaining of spasms, we will switch her Robaxin for tizanidine to see if this helps. She will be allowed home. She knows to return for worsening symptoms despite any treatment, fever, weakness, other concerns Discharge Plan Discharge Patient Disposition: Home Clinical Impression: Lumbar radiculopathy, Lumbar stenosis with neurogenic claudication Condition: Stable Prescriptions: New tizanidine 4 mg capsule 4 mg PO Q6H PRN (Reason: muscle spasticity) Qty: 10 0RF Rx Instructions: do not exceed 3 doses per 24 hrs No Action lactulose 10 gram/15 mL solution 10 g PO DAILY PRN (Reason: constipation) Qty: 473 6RF epinephrine 0.3 mg/0.3 mL auto-injector 0.3 mg IM Q4H PRN (Reason: anaphylaxis) Qty: 2 0RF metoprolol tartrate 25 mg tablet 25 mg PO BID 90 Days Qty: 180 3RF multivitamin Tablet 1 tab PO DAILY zinc gluconate 50 mg tablet 50 mg PO DAILY MARIJUANA inhalation Jardiance 25 mg tablet 25 mg PO DAILY Qty: 90 3RF glimepiride 2 mg tablet 2 mg PO BID Qty: 180 3RF Linzess 290 mcg capsule 290 mcg PO DAILY Qty: 90 3RF losartan-hydrochlorothiazide 100-25 mg tablet 1 tab PO DAILY Qty: 90 3RF methocarbamol 750 mg tablet 750 mg PO TID Qty: 90 1RF potassium chloride 10 mEq tablet,ER particles/crystals 10 meq PO DAILY Qty: 90 3RF rosuvastatin 20 mg tablet 20 mg PO DAILY Qty: 90 3RF (DME) Auto-Titrating CPAP Device See Rx Instructions .Route Qty: 1 0RF Rx Instructions: As directed (DME) Cock Up Splint See Rx Instructions .Route .MEDSUPPLY Qty: 1 0RF Rx Instructions: As directed albuterol sulfate 90 mcg/actuation HFA aerosol inhaler 2 inh inhalation QID PRN (Reason: shortness of breath or wheezing) Qty: 8.5 3RF hydrocodone-acetaminophen 7.5-325 mg tablet 1 tab PO PRN PRN (Reason: Pain) cetirizine [Zyrtec] 10 mg tablet 20 mg PO BID aspirin [Alicia Low Dose Aspirin] 81 mg tablet,delayed release (DR/EC) 81 mg PO DAILY Fish Oil 120-180 mg capsule 2 cap PO QPM cholecalciferol (vitamin D3) [Vitamin D3] 25 mcg (1,000 unit) tablet 25 mcg PO DAILY naloxone 4 mg/actuation spray,non-aerosol 4 mg INTRANASAL PRN PRN (Reason: Opioid Reversal) magnesium chloride 70 mg tablet,delayed release (DR/EC) 500 mg PO DAILY hydrocodone-acetaminophen 10-325 mg tablet 1 tab PO Q4H PRN (Reason: pain) 7 Days Qty: 40 0RF Discharge Orders: Discharge ED (Routine); Ordered 01/13/23 Ordered By: Dionicio Plaza Referrals: Austin Pelaez DO [Physician] - 1-3 days Olivier Savage NP [Primary Care Provider] - Patient Instructions: Lumbar Spinal Stenosis (ED), Opioid Safety, Pain Management Activity Restrictions/Additional Instructions: Return for fever greater than 100, worsening pain despite treatment, loss of function of bowel or bladder or worsening of this, worsening weakness, any other concerning symptoms. Call your doctor on Saturday to let them know you were seen in the emergency department. You may remove the patch in 3 days, as medication lasts 72 hours. Please do not combine pain medication with other medications until you know how you will react to the patch. Use the tizanidine you were prescribed in favor of the Robaxin you had been taking prior. 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
[2023-01-13 00:42] VITALS: BP 137/79; PULSE 73; RESP 16; O2SAT 96
== END 2023-01-13 00:50 | disposition home or self-care (01) ==
PROVIDERS: Emergency Provider Emergency Medicine; PCP Clinical Nurse Specialist Adult Health
DX: M54.16 Radiculopathy, lumbar region (principal); M48.062 Spinal stenosis, lumbar region with neurogenic claudication; Z79.82 Long term (current) use of aspirin; Z79.84 Long term (current) use of oral hypoglycemic drugs; I25.10 Atherosclerotic heart disease of native coronary artery without angina pectoris; I10 Essential (primary) hypertension; E11.9 Type 2 diabetes mellitus without complications; Z87.891 Personal history of nicotine dependence
CPT/HCPCS: 96372; 99284; J1170; J1885; J8540; Q0162

== ENCOUNTER → 2023-04-04 08:11 | Outpatient (BNVA) | payer BC, SELFPAY | PROVIDERS: PCP Clinical Nurse Specialist Adult Health; Visit Provider Orthopaedic Surgery | DX: M47.22 Other spondylosis with radiculopathy, cervical region (principal); Z98.1 Arthrodesis status | CPT/HCPCS: 36415; 72050; 80053; 81003; 83036; 85025 ==

== ENCOUNTER 2023-04-17 09:03 | Observation (INO) | payer BC, SELFPAY ==
[2023-04-16 09:10] VITALS: BMI 30.8
[2023-04-17] VITALS (18 sets, daily range): BP systolic 134–196; BP diastolic 64–92; PULSE 59–96; RESP 14–20; TEMP 36.2–36.8; O2SAT 92–98; BMI 30.8
[2023-04-17] MEDS: sodium chloride 0.9% 1,000 ML 30 ML IV (06:19)
--- NOTE | 2023-04-17 06:33 | ANES.PREANE2 ---
Pre-Anesthetic Assessment Height/Weight: Height 1.7 m Weight 89.358 kg Temp Pulse Resp BP Pulse Ox O2 Del Method 98.1 F 75 18 165/82 95 Room Air 04/17/23 06:07 04/17/23 06:07 04/17/23 06:07 04/17/23 06:07 04/17/23 06:07 04/17/23 06:10 Preop Diagnosis: DDD cervical spine, cervical spondylosis with radiculopathy revision fusion Operation Date: 04/17/23 07:00 Proposed Procedures p Anterior Cervical Discectomy & Fusion ACDF w/ Anterior Interbody Fusion w/ Cage w/ Instrumentation w/ Allograft w/ Navigation(Not Applicable) - Austin Pelaez, DO Familial anesthetic complications: None Was Beta Geremias taken within 24 hours: N/A Was Clonidine taken within 24 hours: N/A Last intake: Intake Last Liquid Date 04/16/23 Last Liquid Time 23:58 Last Solid Date 04/16/23 Last Solid Time 22:00 Social No alcohol and No tobacco Exam alert, oriented x 3, clear to auscultation bilaterally and regular rate & rhythm Airway Mallampati: Class II Dentition: other (no teeth) Pulmonary Chronic Obstructive Pulmonary Disease and Sleep Apnea CV/HEM Hypertension Metabolic Diabetes Mellitus and Hyperlipidemia Anesthetic Plan ASA status: 3 Anesthesia: General Risk of > 500 ml blood loss (7ml/kg in children): No Medications/Allergies Home Medications Medication Instructions Recorded Confirmed Last Taken Type aspirin 81 mg tablet,delayed 81 mg PO DAILY 04/24/22 04/16/23 04/06/23 History release (Alicia Low Dose Aspirin) cetirizine 10 mg tablet (Zyrtec) 20 mg PO BID 04/24/22 04/16/23 04/17/23 04:00 History cholecalciferol (vitamin D3) 25 25 mcg PO DAILY 04/24/22 04/16/23 04/15/23 History mcg (1,000 unit) tablet (Vitamin D3) docosahexaenoic acid (dha)-epa 120 2 cap PO QPM 04/24/22 04/16/23 04/06/23 History mg-180 mg capsule (Fish Oil) hydrocodone 7.5 mg-acetaminophen 1 tab PO PRN PRN Pain 04/24/22 04/16/23 04/17/23 04:00 History 325 mg tablet naloxone 4 mg/actuation nasal spray 4 mg intranasal PRN PRN Opioid 04/24/22 04/17/23 Unknown History Reversal multivitamin 1 tab PO DAILY 06/18/22 04/16/23 04/16/23 History epinephrine 0.3 mg/0.3 mL 0.3 mg (0.3 mL) IM Q4H PRN 07/18/22 04/16/23 Unknown Rx injection, auto-injector anaphylaxis #2 ea lactulose 10 gram/15 mL oral 10 g (15 mL) PO DAILY PRN 07/18/22 04/16/23 04/03/23 Rx solution constipation #473 mL albuterol sulfate 90 mcg/actuation 2 inh inhalation QID PRN shortness 08/01/22 04/16/23 04/09/23 Rx aerosol inhaler of breath or wheezing #8.5 grams MARIJUANA 1 inh inhalation DIRECTED PRN 08/28/22 04/17/23 04/14/22 History Pain zinc gluconate 50 mg tablet 50 mg PO DAILY 08/28/22 04/16/23 04/16/23 History empagliflozin 25 mg tablet 25 mg PO DAILY #90 tabs 08/31/22 04/16/23 04/16/23 Rx (Jardiance) glimepiride 2 mg tablet 2 mg PO BID #180 tabs 08/31/22 04/16/23 04/16/23 08:00 Rx linaclotide 290 mcg capsule 290 mcg PO DAILY #90 caps 08/31/22 04/16/23 04/16/23 Rx (Linzess) losartan 100 1 tab PO DAILY #90 tabs 08/31/22 04/16/23 04/16/23 Rx mg-hydrochlorothiazide 25 mg tablet methocarbamol 750 mg tablet 750 mg PO TID #90 tabs 08/31/22 04/16/23 04/16/23 Rx potassium chloride 10 mEq 10 meq PO DAILY #90 tabs 08/31/22 04/16/23 04/16/23 Rx tablet,extended release(part/cryst) metoprolol tartrate 25 mg tablet 25 mg PO BID 90 days #180 tabs 10/03/22 04/16/23 04/17/23 04:00 Rx CPAP (Auto-Titrating CPAP) #1 ea 11/27/22 04/11/23 Unknown Rx Cock Up Splint #1 ea 11/29/22 04/04/23 Unknown Rx tizanidine 4 mg capsule 4 mg PO Q6H PRN muscle spasticity 01/24/23 04/16/23 Unknown Rx #30 caps Bone growth stimulator #1 ea 04/05/23 Unknown Rx rosuvastatin 20 mg tablet (Crestor) 20 mg PO DAILY 04/16/23 04/16/23 04/15/23 History Allergies Allergy/AdvReac Type Severity Reaction Status Date / Time oxycodone Allergy Intermediate Unknown Verified 04/11/23 08:41 KEENAN Inhibitors Allergy ALGY-cough Verified 04/11/23 08:41 pregabalin [From Lyrica] Allergy ADV-Weaknes Verified 04/11/23 08:41 s Current Medications Generic Name Dose Route Start Last Admin Trade Name Freq PRN Reason Stop Dose Admin Sodium Chloride 1,000 mls @ 30 mls/hr 04/17/23 05:45 04/17/23 06:19 Sodium Chloride 0.9% IV 04/18/23 05:44 30 mls/hr .Q24H DEMETRI Administration PFSH Anesthesia Medical History Allergy-induced asthma Chronic bronchitis Coronary artery disease Essential hypertension Generalized osteoarthritis GERD (gastroesophageal reflux disease) Hypercholesterolemia Irritable bowel syndrome with constipation Lung nodule Obstructive sleep apnea compliant with autotitrating CPAP Peripheral neuropathy Screening for colon cancer Smoking history Tinnitus Type 2 diabetes mellitus Surgical History History of left-sided carotid endarterectomy Hx of appendectomy Hx of cervical discectomy Hx of section Hx of cholecystectomy Hx of knee surgery Social History Smoking and tobacco status: former smoker Quit status (tobacco): has quit using tobacco Year quit tobacco: 2008 Former quit date comment: 40 pack year history Alcohol intake: former Substance/Drug Use: current Substance/Drug use frequency: Special occassions/opportunity only Other details last substance use: marijuana Data Anesthesia Cardiac Studies: Echocardiogram 08/29/22
--- NOTE | 2023-04-17 06:34 | W.PM.OPSUD ---
Surgery/Procedure H&P Update DATE OF PROCEDURE: April 17, 2023 DATE H&P PERFORMED: 04/11/23 H&P UPDATE INFORMATION: I have reviewed H&P completed within last 30 days, I have examined patient prior to procedure and No changes to prior documentation PREOP DIAGNOSIS: DDD cervical spine, cervical spondylosis with radiculopathy revision fusion PLANNED PROCEDURE: Operation Date: 04/17/23 07:00 Proposed Procedures p Anterior Cervical Discectomy & Fusion ACDF w/ Anterior Interbody Fusion w/ Cage w/ Instrumentation w/ Allograft w/ Navigation(Not Applicable) - Austin Pelaez DO
[2023-04-17] MEDS: ceFAZolin 2,000 MG in sodium chloride 0.9% (plus) 50 ML 100 MG IV ×3 (07:02→22:38)
[2023-04-17] MEDS: lidocaine-epi 1% 20 mL INJ INJECTION (07:48)
[2023-04-17 08:28] LABS: Glucose Point of Care 131 mg/dL (70-110)
--- NOTE | 2023-04-17 09:11 | P.OP_ITS ---
Operative Report Date of procedure: April 17, 2023 Pre-op diagnosis: Cervical spondylosis with radiculopathy Post-op diagnosis: same Procedure done: 1. Anterior diskectomy C4/5 2. Anterior discectomy C6/7 3. Insertion of cage C4/5 4. Insertion of Cage C6/7 5. Instrumentation with anterior plate from C4-C7 6. Use of allograft Surgeon: Austin Pelaez DO Building Drafting Officer: Roger Mcpherson Building Drafting Officer: The surgical elastic knitter, Roger Mcpherson, ASA was needed for his expertise under the microscope. He was important and necessary throughout the procedure to complete in a safe and timely manner. He assisted with patient positioning prepping and draping tissue retraction suctioning of the operative field protection of the dural sac and tissue closure Estimated blood loss (mL): 50 Procedure: 1. Anterior diskectomy C4/5 2. Anterior discectomy C6/7 3. Insertion of cage C4/5 4. Insertion of Cage C6/7 5. Instrumentation with anterior plate from C4-C7 6. Use of allograft The patient was taken to the operating room, where he underwent general endotracheal anesthesia without complications. He was then positioned supine on the operating table, and all areas of impingement were well padded. The arms were carefully padded and tucked at his sides. A roll was placed between the shoulder blades.. An x-ray was done to determine the appropriate level for the skin incision. The entire neck was then sterilely prepped and draped in the usual fashion. Neuromonitoring was attached prior to prepping. A transverse skin incision was made and carried down to the platysma muscle. This was then split in line with its fibers. Blunt dissection was carried down medial to the carotid sheath and lateral to the trachea and esophagus until the anterior cervical spine was visualized. A needle was placed into a disc and an x-ray was done to determine its location. The longus colli muscles were then elevated bilaterally with the electrocautery unit. Self-retaining retractors were placed deep to the longus colli muscle. Attention was brought to the C4/5 level that was confirmed on x-ray. A caspar pin was placed into the C4 vertebrae and the C5 vertebrae. The disk space was then distracted. The microscope was then brought in. A radical anterior discectomies were performed at C4/5. This included complete removal of the anterior annulus, nucleus, and posterior annulus. The posterior longitudinal ligament was removed as were the posterior osteophytes. Foraminotomies were then accomplished bilaterally. This was done using a high speed stephanie, kerrison rongeurs and curretes Once all of this was accomplished, the curved currette was used to check for any residual compression. The central canal was wide open as were the foramen. A high-speed bur was used to remove the cartilaginous endplates above and below the interspace. Bleeding cancellous bone was exposed. The disc space were measured and appropriate size cage were placed sterilely onto the field. Allograft graft was packed into the cages. The cage was then placed and there was good juxtaposition against the bleeding decorticated surfaces and good distraction of each interspace. Attention was brought to the next interspace. The [place] pins were removed. Bone wax was used to prevent any bleeding from occurring at the pin sites. C5-6 level skipped this level already had a fusion cage unit. Attention was brought to the C6/7 level that was confirmed on x-ray. A caspar pin was placed into the C6 vertebrae and the C7 vertebrae. The disk space was then distracted. The microscope was then brought in. A radical anterior discectomies were performed at C6/7. This included complete removal of the anterior annulus, nucleus, and posterior annulus. The posterior longitudinal ligament was removed as were the posterior osteophytes. Foraminotomies were then accomplished bilaterally. This was done using a high speed stephanie, kerrison rongeurs and curretes Once all of this was accomplished, the curved currette was used to check for any residual compression. The central canal was wide open as were the foramen. A high-speed bur was used to remove the cartilaginous endplates above and below the interspace. Bleeding cancellous bone was exposed. The disc space were measured and appropriate size cage were placed sterilely onto the field. Allograft graft was packed into the cages. The cage was then placed and there was good juxtaposition against the bleeding decorticated surfaces and good distraction of each interspace. Attention was brought to the next interspace. The [place] pins were removed. Bone wax was used to prevent any bleeding from o ccurring at the pin sites. The appropriate size anterior cervical locking plate was chosen and bent into gentle lordosis. Two screws were then placed into each of the vertebral bodies at C4,C5,C6 and C7. There was excellent purchase. A final x-ray was done confirming good position of the hardware and Cages. The locking screws were then applied, also with excellent purchase. Following a final copious irrigation, there was good hemostasis and no dural leaks. The carotid pulse was strong. The wounds were then closed in layers using 2-0 Vicryl suture for the platysma muscle, 2-0 Vicryl suture for the subcutaneous tissue, and 4-0 monocryl suture in a subcuticular skin closure. Glue was placed followed by application of a sterile dressing. The drain was hooked to bulb suction. A soft collar was applied. The patient was then carefully returned to the supine position on his hospital bed where he was reversed and extubated and taken to the recovery room having tolerated the procedure well.
[2023-04-17] MEDS: labetalol 5 mg/mL SDV 20mL 100 MG (09:24)
[2023-04-17 11:43] LABS: Glucose Point of Care 206 mg/dL (70-110)
[2023-04-17] MEDS: HYDROcodone-acetaminophen 10-325 mg Tablet PO ×3 (12:19→22:38)
[2023-04-17] MEDS: lactated ringers 1,000 ML 90 ML IV ×2 (12:26→22:37)
--- NOTE | 2023-04-17 13:45 | ANE.PACU2 ---
Inpatient post-anesthesia follow up: Airway intact: Yes Vital signs: Temperature 98.0 F Pulse Rate 94 Respiratory Rate 16 Blood Pressure 178/82 Pulse Oximetry 93 Oxygen Delivery Me thod Room Air Oxygen Flow Rate 2 Fraction of Inspir ed Oxygen Hydration adequate: Yes Nausea and vomiting: No Pain level: 1 Mental status: Baseline
[2023-04-17] MEDS: methocarbamol 750 mg Tablet PO ×2 (16:03→19:34)
[2023-04-17] MEDS: ketorolac 30 mg/mL INJ IVP ×2 (16:14→22:38)
[2023-04-17 16:50] LABS: Glucose Point of Care 297 mg/dL (70-110)
[2023-04-17] MEDS: metoprolol tartrate 25 mg Tablet PO (18:12)
[2023-04-17] MEDS: cetirizine 10 mg Tablet 20 MG PO (18:12)
[2023-04-17] MEDS: docusate sodium 100 mg Capsule PO (18:12)
[2023-04-17] MEDS: glimepiride 2 mg Tablet PO (18:15)
[2023-04-17 21:23] LABS: Glucose Point of Care 272 mg/dL (70-110)
--- NOTE | 2023-04-18 | XR_ITS ---
WS: [id number] EXAMINATION: XR cervical spine 3V* [id number] FOR EXAM: cervical acdf, or pic COMPARISON: None available. FINDINGS/IMPRESSION: Fluoroscopy time 12.9 seconds Intraoperative C arm views demonstrate stable endotracheal tube position. Anterior compression platin g with multiple paired screws at each vertebral level are imaged beginning at C4 and traversing the r emainder of the cervical spine at the mid plate level/spacers of 2 different types are demonstrated.
[2023-04-18 00:10] VITALS: BP 146/67; PULSE 70; RESP 16; TEMP 36.8; O2SAT 95
[2023-04-18] MEDS: HYDROcodone-acetaminophen 10-325 mg Tablet PO ×2 (02:21→06:15)
[2023-04-18] MEDS: ketorolac 30 mg/mL INJ IVP (04:34)
[2023-04-18 04:42] VITALS: BP 159/74; PULSE 73; RESP 16; TEMP 36.9; O2SAT 94
[2023-04-18] MEDS: ceFAZolin 2,000 MG in sodium chloride 0.9% (plus) 50 ML 100 MG IV (06:16)
[2023-04-18 06:58] LABS: Glucose Point of Care 124 mg/dL (70-110)
--- NOTE | 2023-04-18 07:41 | PM.PN ---
Subjective Subjective: POD 1 Patient walking around the room. Reports arm pain much better. Denies swallowing, voice changes, headaches, shortness of breath. Denies chest pain. Vitals/I&O/Wt Last Vital Signs Temp 98.4 F 04/18/23 04:42 Pulse 73 04/18/23 04:42 Resp 16 04/18/23 04:42 BP 159/74 04/18/23 04:42 Pulse Ox 94 04/18/23 04:42 O2 Del Method Room Air 04/18/23 04:42 O2 Flow Rate 2 04/17/23 10:50 04/17/23 04/18/23 04/18/23 22:59 06:59 14:59 Intake Total 1206.5 / 2596.5 100 / 2696.5 Output Total 2130 / 3655 1170 / 4825 Balance -923.5 / -1058.5 -1070 / -2128.5 Weight last 48 hrs Weight 197 lb Weight 197 lb Physical Exam Narrative: Patient is alert and oriented x3 with a good general appearance normal mood and affect. Nontender with palpation about the incisional site. Incision appears to be clean and dry with Hemovac intact without signs of erythema or drainage. No signs of infection. Good motor strength throughout both upper extremities. Appears to fire in all motor groups with 5/5 strength. Hands are warm good cap refill in all digits. Normal sensation to light touch in all dermatomal areas. Urinary Catheter Management: Lackey: Cath Placed During This Visit: yes, but has since been removed by the nurse Reason for Continuing Indwelling Catheter: Decision to DC Catheter Urinary Catheter Date of Insertion: 04/17/23 Urinary Catheter Time of Insertion: 07:20 Date Urinary Catheter Removed: 04/18/23 Time Urinary Catheter Discontinued: 06:22 A&P Assessment and plan (1) Status post cervical spinal fusion: Encourage mobilization. We will discontinue Hemovac drain. Discharge home today. See her back in the office in 1 week's time for wound check. Attestations Medical Necessity Statement*: DC home today. Coding Level of Care Code Acute Code for Chg Fwd Diagnoses Status post cervical spinal fusion Z98.1
[2023-04-18 08:00] VITALS: BP 170/77; PULSE 59; PULSE 86; RESP 16; TEMP 36.9; O2SAT 95; O2SAT 96
[2023-04-18] MEDS: aspirin 81 mg EC Tablet PO (08:46)
[2023-04-18 08:47] VITALS: BP 170/77
[2023-04-18] MEDS: methocarbamol 750 mg Tablet PO (08:47)
[2023-04-18] MEDS: metoprolol tartrate 25 mg Tablet PO (08:47)
[2023-04-18] MEDS: losartan 50 mg Tablet 100 MG PO (08:47)
[2023-04-18] MEDS: cholecalciferol (vitamin D3) 1,000 unit Tablet 1000 UNIT PO (08:47)
[2023-04-18] MEDS: multivitamin therapeutic Tablet 1 TAB PO (08:47)
[2023-04-18] MEDS: zinc gluconate 50 mg Tablet PO (08:47)
[2023-04-18] MEDS: docusate sodium 100 mg Capsule PO (08:47)
[2023-04-18] MEDS: glimepiride 2 mg Tablet PO (08:47)
[2023-04-18] MEDS: hydroCHLOROthiazide 25 mg Tablet PO (08:47)
[2023-04-18] MEDS: potassium chloride ER 10 mEq Tablet PO (08:47)
[2023-04-18] MEDS: atorvastatin 40 mg Tablet 80 MG PO (08:47)
[2023-04-18] MEDS: cetirizine 10 mg Tablet 20 MG PO (08:48)
[2023-04-18 09:14] VITALS: BP 170/77
--- NOTE | 2023-04-18 10:34 | PC.CHAP ---
Pastoral Care Encounter/Spiritual Assessment Type of Contact [] Declined health and social care teacher visit [] Patient/Family/Request visit [] Outpatient visit [] Follow-up visit [] Physician referral [] Code/Alert [x] Routine visit [] Staff referral [] Actively dying [] Patient sleeping [] Family support [] [] Out of room [] Palliative care [] [x] Receiving care in room [] Pre-surgical visit [] Trauma [] Long length of stay [] ICU visit [] Other: Relational/Emotional Strength [x] Patient feels connected with others/family/visitors/staff [] Distress [] Loneliness/isolation [] Abandonment Spirituality of Patient [x] Person of Rachel [] Attends Religious of their Rachel [x] Believes in Prayer [] Reads Bible or Bahai materials [] There are Spiritual issues to be addressed Elect Equip Maint Eng Interventions [x] Prayer [x] Active listening [x] Non-anxious presence [x] Spiritual/emotional support [] Crisis/trauma care [x] Spiritual counseling [] Bereavement support [] Provided bereavement packet [] Provided Bible/devotional materials [] Provided toy/stuffed animal, coloring book to patient or family member [] Provided Communion [] Anointing/Carmen [] Salvation [x] Completed spiritual assessment [] Other: Impact on Illness or Injury [] Angry [] Fearful [] Anxious [] Often cries [] Exhaustion [] Unable to work [] Unable to attend protestant [] Unable to walk/stand [] Unable to read [] Unable to drive [] Unable to eat/drink [] Unable to sleep [] Unable to be with family [] Patient intubated [] Other: Summary 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
--- NOTE | 2023-04-22 06:34 | PM.DCS ---
Discharge Providers Date of Admission: 04/17/23 09:03 Date of Discharge: April 18, 2023 Attending Provider at Admission: Austin Pelaez DO Attending Provider at Discharge: Austin Pelaez DO Primary Care Provider: Olivier Savage Diagnoses at Discharge Discharge Diagnosis (1) Status post cervical spinal fusion: Status: Resolved Reason for Visit Reason for Visit: M47.22, R20.2 Physical Exam Urinary Catheter Management: Lackey: Cath Placed During This Visit: yes, but has since been removed by the nurse Reason for Continuing Indwelling Catheter: Decision to DC Catheter Urinary Catheter Date of Insertion: 04/17/23 Urinary Catheter Time of Insertion: 07:20 Date Urinary Catheter Removed: 04/18/23 Time Urinary Catheter Discontinued: 06:22 Discharge Data Studies Completed and Pending Completed Studies During Hospitalization Category Date Time Status XR cervical spine 3V* [id number] Routine Exams 04/18/23 Completed Laboratory Results POC Glucose 124 mg/dL (70-110) H 04/18/23 06:53 Vitals Last Vital Signs Temp 98.4 F 04/18/23 08:00 Pulse 59 L 04/18/23 08:00 Resp 16 04/18/23 08:00 BP 170/77 04/18/23 09:14 Pulse Ox 95 04/18/23 08:00 O2 Del Method Room Air 04/18/23 08:00 O2 Flow Rate 2 04/17/23 10:50 Discharge Plan Discharge Patient Disposition: Home Condition: Stable Prescriptions: New hydrocodone-acetaminophen 10-325 mg Tablet 1 tab PO Q4H PRN (Reason: Postoperative pain) Qty: 30 0RF Continued lactulose 10 gram/15 mL solution 10 g PO DAILY PRN (Reason: constipation) Qty: 473 6RF epinephrine 0.3 mg/0.3 mL auto-injector 0.3 mg IM Q4H PRN (Reason: anaphylaxis) Qty: 2 0RF metoprolol tartrate 25 mg tablet 25 mg PO BID 90 Days Qty: 180 3RF tizanidine 4 mg capsule 4 mg PO Q6H PRN (Reason: muscle spasticity) Qty: 30 0RF Rx Instructions: do not exceed 3 doses per 24 hrs multivitamin Tablet 1 tab PO DAILY zinc gluconate 50 mg tablet 50 mg PO DAILY MARIJUANA 1 inh inhalation DIRECTED PRN (Reason: Pain) Jardiance 25 mg tablet 25 mg PO DAILY Qty: 90 3RF glimepiride 2 mg tablet 2 mg PO BID Qty: 180 3RF Linzess 290 mcg capsule 290 mcg PO DAILY Qty: 90 3RF losartan-hydrochlorothiazide 100-25 mg tablet 1 tab PO DAILY Qty: 90 3RF methocarbamol 750 mg tablet 750 mg PO TID Qty: 90 1RF potassium chloride 10 mEq tablet,ER particles/crystals 10 meq PO DAILY Qty: 90 3RF (DME) Auto-Titrating CPAP Device See Rx Instructions .Route Qty: 1 0RF Rx Instructions: As directed (DME) Cock Up Splint See Rx Instructions .Route .MEDSUPPLY Qty: 1 0RF Rx Instructions: As directed albuterol sulfate 90 mcg/actuation HFA aerosol inhaler 2 inh inhalation QID PRN (Reason: shortness of breath or wheezing) Qty: 8.5 3RF (DME) Bone growth stimulator See Rx Instructions .Route .MEDSUPPLY Qty: 1 0RF Rx Instructions: As directed hydrocodone-acetaminophen 7.5-325 mg tablet 1 tab PO PRN PRN (Reason: Pain) cetirizine [Zyrtec] 10 mg tablet 20 mg PO BID aspirin [Alicia Low Dose Aspirin] 81 mg tablet,delayed release (DR/EC) 81 mg PO DAILY Fish Oil 120-180 mg capsule 2 cap PO QPM cholecalciferol (vitamin D3) [Vitamin D3] 25 mcg (1,000 unit) tablet 25 mcg PO DAILY naloxone 4 mg/actuation spray,non-aerosol 4 mg INTRANASAL PRN PRN (Reason: Opioid Reversal) rosuvastatin [Crestor] 20 mg tablet 20 mg PO DAILY Discharge Orders: Discharge Order (Routine); Ordered 04/18/23 Ordered By: Roger Mcpherson Referrals: Austin Pelaez DO [Physician] - 2 weeks (We have notified your physician's clinic of the need for a follow-up appointment to be scheduled. If you have not heard from them within the next 2 business days, please call them directly. You may also reach out to our manager client at [phone] and she can assist you.) Olivier Savage, [employer] [Primary Care Provider] - (We have notified your physician's clinic of the need for a follow-up appointment to be scheduled. If you have not heard from them within the next 2 business days, please call them directly. You may also reach out to our manager client at [phone] and she can assist you.) Discharge Diet: Advance as tolerated Discharge Activity: Limit activity as instructed Patient Instructions: Hydrocodone/Acetaminophen (By mouth) (Vicodin, [place], Lortab), Anterior Cervical Discectomy (DC), Opioid Safety Activity Restrictions/Additional Instructions: Thank you for choosing [facility] for your care! The following is a list of instructions, from your provider, to follow upon your discharge to ensure you have the optimal recovery from your recent injury or surgery. Anterior Cervical Discectomy and Fusion: What to Expect at Home Your Recovery Follow-up care is a henning part of your treatment and safety. Be sure to make and go to all appointments, and call your doctor if you are having problems. If you do not already have a follow-up appointment made, call office in the next 1-3 days to make follow up appointment for 1-2 weeks at [phone]. It is also a good idea to know your test results and keep a list of the medicines you take. You can expect your neck to feel stiff or sore after surgery. This should improve in the weeks after surgery. But it may take 4 to 6 months for you to get better completely. You may have trouble sitting or standing in one position for very long and may need pain medicine in the weeks after your surgery. It may take 4 to 6 weeks to get back to your usual activities, but it may depend on what kind of surgery you had. Your throat will feel sore and it may be difficult to swallow for the first 3 days after your surgery. As long as you can get liquids down without difficulty, this should slowly improve, otherwise call our office or seek medical attention if it becomes increasingly difficult to get anything down including liquids. Avoid hot liquids for first 3-5 days. Soothing foods/liquids such as jello, pudding, and luke warm soups are recommended until swallowing improves. Staying elevated will also help, it's advised you keep propped up at while sleeping to help reduce the swelling. You may use an ice pack directly on your incision or around it on the front of your neck, using a cloth to protect your skin; and a heating pad to the back of your neck as needed. Do not use over the counter anti-inflammatory medications (Ibuprofen, Motrin, Aleve, Advil, etc) Taking these meds after having a fusion can delay fusion rates, we recommend you avoid them for the first 3 months after your surgery[address] Dr. Pelaez may advise you to work with a physical therapist to strengthen the muscles around your neck and back - this will be discussed at your follow - up appointments. The pain or numbness you were having in your arms before surgery should get better or go away completely. This care sheet gives you a general idea about how long it will take for you to recover. But each person recovers at a different pace. Follow the steps below to get better as quickly as possible. How can you care for yourself at home? Activity ? Rest when you feel tired. Getting enough sleep will help you recover. ? Try to walk each day. Start by walking a little more than you did the day before. Bit by bit, increase the amount you walk. Walking boosts blood flow and helps prevent pneumonia and constipation. Walking may also decrease your muscle soreness after surgery. ? No lifting anything that is more that 5 pounds. This may include heavy grocery bags and milk containers, a heavy briefcase or backpack, cat litter or dog food bags, a child, or a vacuum apparatus cleaner. ? Avoid strenuous activities, such as bicycle riding, jogging, weightlifting, or aerobic exercise, until your doctor says it is okay. ? Do not drive until your follow-up visit after your surgery, or until your doctor says it isokay. ? Avoid taking long car trips for 2 to 4 weeks after surgery. Your neck may become tired and painful from sitting too long in one position. ? You will probably need to take 4 to 6 weeks off from work. It depends on the type of work you do and how you feel. ? You may have sex as soon as you feel able, but avoid positions that put stress on your neck or cause pain. Diet ? You can eat your normal diet. If your stomach is upset, try bland, low-fat foods like plain rice, broiled chicken, toast, and yogurt ? Drink plenty of fluids. If you have kidney, heart, or liver disease and have to limit fluids, talk with your doctor before you increase the amount of fluids you drink. ? You may notice that your bowel movements are not regular right after your surgery. This is common. Try to avoid constipation and straining with bowel movements. You may want to take a fiber supplement every day. If you have not had a bowel movement after a couple of days, ask your doctor about taking a mild laxative. Medicines ? Take pain medicines exactly as directed. 1. If Dr. Pelaez gave you a prescription medicine for pain, take lt as prescribed. 2. Do not take two or more pain medicines at the same time unless the doctor told you to. Many pain medicines have acetaminophen, which is Tylenol. Too much acetaminophen {Tylenol) can be harmful. 3. If you think your pain pill is making you sick to your stomach: 4. Take your pills after meals (unless your doctor has told you not to). 5. Ask your Dr. for a different pain pill. Incisioncare ? Remove your dressing 48 hours after your surgery. Ok to shower and get the incision wet. Do not overtly wash your incision. When done, pad dry, leave open to air thereafter. Avoid creams and ointments directly on your incision. ? Your sutures in the incision will dissolve and fall out on their own. ? Keep the area clean and dry. You may cover it with a gauze bandage if it weeps or rubs against clothing; if you choose to do this, change the dressing everyday. Other instructions ? Use a heating pad, hot water bottle, or gentle massage on your back to reduce stiffness. Avoid putting heat on your incision When should you call for help? ? Call 911 anytime you think you may need emergency care. For example, call if: ? You pass out (lose consciousness). ? You have sudden chest pain and shortness of breath, or you cough upblood. ? You cannot swallow. ? You have severe pain in your neck or back. ? Call your Dr. or seek immediate medical care if: ? You have pain that does not get better after you take pain pills. ? You have loose stitches, or your incision comes open. ? You have blood or fluid draining from the incision. ? You have signs of infection, such as: 1. Increased pain, swelling, warmth, or redness. 2. Red streaks leading from the site. 3. Pus draining from the site. 4. Swollen lymph nodes in your neck or armpits. 5. A fever. ? You have severe pain in your arms. ? You have new or increased weakness or numbness in your arms. ? Watch closely for any changes in your health, and be sure to contact your doctor if: ? You do not have a bowel movement after taking a laxative. Discharge Attestations Time Spent in Discharge Care*: less than 30 min Quality Metrics Clinical Quality Measures [ No reported AMI, CVA or VTE this stay] Coding Level of Care Code Acute Code for Chg Fwd Diagnoses Status post cervical spinal fusion Z98.1
== END 2023-04-18 09:40 | disposition home or self-care (01) ==
LOC: MEDSURG 04-18 06:26
PROVIDERS: Admitting Provider Orthopaedic Surgery; PCP Clinical Nurse Specialist Adult Health; Visit Provider Orthopaedic Surgery
PROC: 0RB30ZZ Excision of Cervical Vertebral Disc, Open Approach (ICD-10-PCS; CPT 22551; principal; 2023-04-17 07:00)
DX: M54.12 Radiculopathy, cervical region (principal); J44.9 Chronic obstructive pulmonary disease, unspecified; G47.30 Sleep apnea, unspecified; I10 Essential (primary) hypertension; E78.5 Hyperlipidemia, unspecified; Z79.82 Long term (current) use of aspirin; I25.10 Atherosclerotic heart disease of native coronary artery without angina pectoris; E78.00 Pure hypercholesterolemia, unspecified; E11.42 Type 2 diabetes mellitus with diabetic polyneuropathy; Z87.891 Personal history of nicotine dependence
CPT/HCPCS: 20930; 22551; 22552; 22845; 22853 ×2; 36416; 51702; 72040; 76000; 82962; 97110; 97161; 97530; C1713; C1763; C9359; G0378; J0131; J0690; J1100; J1170; J1885; J2405; J2704; J3010; J3490; J7030; J7120

== ENCOUNTER → 2023-05-02 08:58 | Outpatient (BNVA) | payer BC, SELFPAY | PROVIDERS: PCP Clinical Nurse Specialist Adult Health; Visit Provider Physician Assistant | DX: Z47.89 Encounter for other orthopedic aftercare (principal); Z98.1 Arthrodesis status | CPT/HCPCS: 72040 ==

== ENCOUNTER → 2023-05-30 09:21 | Outpatient (BNVA) | payer BC, SELFPAY | PROVIDERS: PCP Clinical Nurse Specialist Adult Health; Visit Provider Physician Assistant | DX: Z98.1 Arthrodesis status (principal) | CPT/HCPCS: 72040 ==

== ENCOUNTER → 2023-07-02 08:59 | Outpatient (BNVA) | payer BC, SELFPAY | PROVIDERS: PCP Clinical Nurse Specialist Adult Health; Visit Provider Physician Assistant | DX: Z47.89 Encounter for other orthopedic aftercare (principal); Z98.1 Arthrodesis status | CPT/HCPCS: 72040 ==

== ENCOUNTER → 2023-10-01 08:38 | Outpatient (BNVA) | payer BC, SELFPAY | PROVIDERS: PCP Clinical Nurse Specialist Adult Health; Visit Provider Orthopaedic Surgery | DX: Z98.1 Arthrodesis status (principal) | CPT/HCPCS: 72040 ==

== ENCOUNTER → 2023-10-15 12:09 | Outpatient (BNVA) | payer BC, SELFPAY | PROVIDERS: PCP Clinical Nurse Specialist Adult Health; Visit Provider Clinical Nurse Specialist Adult Health | DX: E78.00 Pure hypercholesterolemia, unspecified (principal); E11.9 Type 2 diabetes mellitus without complications | CPT/HCPCS: 80053; 80061; 83036; 85025 ==

== ENCOUNTER 2023-10-29 07:03 | Outpatient (CLI) | payer BC, SELFPAY ==
--- NOTE | 2023-10-29 07:00 | CT_ITS ---
WS: [id number] LDCT LUNG CANCER SCREENING HISTORY: follow lung nodule TECHNIQUE: Axial imaging performed from the apices to 1 cm below the costophrenic angles. Coronal and sagittal reformats are submitted with axial MIP series. All CT scans at [facility] use at least one of these dose optimization techniques: automated exposure control; mA and/or kV adjustment per patient size (includes targeted exams where dose is matched to clinical indication); or iterativ e reconstruction. DLP: 66.16 mGy.cm DIvol: Mean CTDIvol: 1.40 (mGy) COMPARISON: 01/04/2022 Diagnostic quality: Satisfactory Lungs: Well aerated lungs. No suspicious mass or nodule. No change in the micronodule LEFT upper lobe . No pneumonia. Mild hyperinflation no endobronchial lesions. Heart: Normal size heart with no pericardial effusion.. Other findings: Heavy calcification in the thoracic aorta. Normal size aorta and pulmonary artery. No adenopathy. Prior cholecystectomy. No adrenal mass. Increase in thoracic kyphosis. IMPRESSION: CT/CT lung screening [id number] LUNG-RADS: 1-Negative FOLLOW UP: 12 Month: Continue annual screening with LDCT OTHER FINDINGS (S MODIFIER): None.
== END 2023-10-29 07:04 | disposition home or self-care (01) ==
LOC: RAD 07:03
PROVIDERS: PCP Clinical Nurse Specialist Adult Health; Visit Provider Clinical Nurse Specialist Adult Health
DX: Z87.891 Personal history of nicotine dependence (principal); E11.9 Type 2 diabetes mellitus without complications; R91.1 Solitary pulmonary nodule; Z12.2 Encounter for screening for malignant neoplasm of respiratory organs
CPT/HCPCS: 71271

== ENCOUNTER 2023-11-18 10:46 | Outpatient (CLI) | payer BC, SELFPAY ==
--- NOTE | 2023-11-18 11:00 | MM_ITS ---
WS: [id number] DIAGNOSTIC BILATERAL DIGITAL BREAST TOMOSYNTHESIS MAMMOGRAPHY WITH CAD LEFT breast ultrasound, limited HISTORY: History of abnormal mammogram. New palpable area 1:00 LEFT breast. COMPARISON: 03/09/2022, 02/07/2022, 03/03/2020, ultrasound 03/09/2022 and 04/17/2022 TECHNIQUE: Bilateral craniocaudad, mediolateral oblique, and mediolateral views are submitted with to mosynthesis and SM. Spot compression LEFT CC. Computer aided detection utilized. Breast composition: The breasts are heterogeneously dense, which may obscure small masses. Numerous c alcifications. The asymmetry noted in the anterior LEFT breast is similar to 02/07/2022. Patient did n ot return for 6-month follow-up as recommended. There is no abnormality in the palpable marker region . Calcifications are similar to prior studies. LEFT breast ultrasound, limited There is no suspicious mass identified. There are several small cysts identified. No solid mass. MM/[place] [id number] IMPRESSION: BI-RADS: 2-Benign FOLLOW UP: 1 Year Follow-up
--- NOTE | 2023-11-18 12:19 | US_ITS ---
WS: [id number] DIAGNOSTIC BILATERAL DIGITAL BREAST TOMOSYNTHESIS MAMMOGRAPHY WITH CAD LEFT breast ultrasound, limited HISTORY: History of abnormal mammogram. New palpable area 1:00 LEFT breast. COMPARISON: 03/09/2022, 02/07/2022, 03/03/2020, ultrasound 03/09/2022 and 04/17/2022 TECHNIQUE: Bilateral craniocaudad, mediolateral oblique, and mediolateral views are submitted with to mosynthesis and SM. Spot compression LEFT CC. Computer aided detection utilized. Breast composition: The breasts are heterogeneously dense, which may obscure small masses. Numerous c alcifications. The asymmetry noted in the anterior LEFT breast is similar to 02/07/2022. Patient did n ot return for 6-month follow-up as recommended. There is no abnormality in the palpable marker region . Calcifications are similar to prior studies. LEFT breast ultrasound, limited There is no suspicious mass identified. There are several small cysts identified. No solid mass. US/US breast LT limited* [id number] IMPRESSION: BI-RADS: 2-Benign FOLLOW UP: 1 Year Follow-up
== END 2023-11-18 10:47 | disposition home or self-care (01) ==
LOC: RAD 10:46
PROVIDERS: PCP Clinical Nurse Specialist Adult Health; Visit Provider Clinical Nurse Specialist Adult Health
DX: R92.8 Other abnormal and inconclusive findings on diagnostic imaging of breast (principal); Z12.39 Encounter for other screening for malignant neoplasm of breast; R92.333 Mammographic heterogeneous density, bilateral breasts; N60.02 Solitary cyst of left breast
CPT/HCPCS: 76642; 77062; G0279

== ENCOUNTER → 2024-01-28 14:01 | Outpatient (BNVA) | payer BC, SELFPAY | PROVIDERS: PCP Clinical Nurse Specialist Adult Health; Referring Provider Clinical Nurse Specialist Adult Health; Visit Provider Internal Medicine | DX: R07.9 Chest pain, unspecified (principal) | CPT/HCPCS: 93005 ==

== ENCOUNTER 2024-02-19 12:19 | Outpatient (CLI) | payer BC, SELFPAY ==
--- NOTE | 2024-02-19 12:45 | USCV_ITS ---
Jazmine Figueredo Age: 63 Gender: F : 1960 Exam Date: 02/19/2024 12:32 Ordering Phys: Jasen Wright M.D ([email or web address]) Technologist: Exam Location: [facility] [place] Indication: murmur BP: 130 / 80 HR: 78 Rhythm: Sinus Technical Quality: Adequate MEASUREMENTS (Male / Female) Normal Values 2D ECHO LV Diastolic Diameter PLAX 3.9 cm 4.2 - 5.9 / 3.9 - 5.3 cm IVS Diastolic Thickness 1.2 cm 0.6 - 1.0 / 0.6 - 0.9 cm IVS Systolic Thickness 1.7 cm LVPW Diastolic Thickness 1.2 cm 0.6 - 1.0 / 0.6 - 0.9 cm LVPW Systolic Thickness 1.4 cm LVOT Diameter 2.1 cm LV Ejection Fraction 2D Teich 71.2 % LV Ejection Fraction MOD 4C 73.5 % LV Ejection Fraction MOD 2C 69.9 % LV Ejection Fraction 2C AL 71.1 % LA Diameter 2.8 cm RA Systolic Volume 4C AL 32.0 ml RA Systolic Volume 4C MOD 29.7 ml Aorta at Sinotubular Diameter 2.1 cm M-MODE LA Ao Ratio MM 1.5 AV Cusp Separation MM 2.4 cm DOPPLER AV Peak Velocity 172.0 cm/s LVOT Peak Velocity 115.0 cm/s AV Area Cont Eq vti 3.5 cm squared AV Area Cont Eq pk 2.4 cm squared MV Area PHT 3.2 cm squared Mitral E to A Ratio 0.9 TV Peak Velocity 173.5 cm/s TR Peak Velocity 218.0 cm/s TR Peak Gradient 19.0 mmHg TV Peak E Velocity 89.0 cm/s Right Atrial Pressure 3.0 mmHg Pulmonary Artery Systolic Pressu 22.0 mmHg PV Peak Velocity 140.0 cm/s FINDINGS Left Ventricle Left ventricle is normal in size. LV systolic function is normal with EF 60-65 %. No regional wall motion normalities are seen Right Ventricle Right Atrium Normal in size. Left Atrium Normal in size Mitral Valve Structurally normal mitral valve. Trace mitral regurgitation Aortic Valve Structurally normal aortic valve. No significant stenosis or regurgitation Tricuspid Valve Mild tricuspid regurgitation. Pulmonary artery systolic pressure is normal Pulmonic Valve Not well-visualized Pericardium Normal Aorta Normal in size IVC Not well visualized CONCLUSIONS LV systolic function is normal with EF of 60 to 65%. Trace mitral regurgitation Mild tricuspid regurgitation Compared to prior echo from 2022, no significant changes are seen. Jasen Wright MD (Electronically Signed) Final Date: 06 March 2024 20:54 S
== END 2024-02-19 12:20 | disposition home or self-care (01) ==
LOC: RAD 12:20
PROVIDERS: PCP Clinical Nurse Specialist Adult Health; Visit Provider Internal Medicine
DX: R06.02 Shortness of breath (principal)
CPT/HCPCS: 93306

== ENCOUNTER → 2024-03-18 11:53 | Outpatient (BNVA) | payer BC, SELFPAY | PROVIDERS: PCP Clinical Nurse Specialist Adult Health; Visit Provider Clinical Nurse Specialist Adult Health | DX: E11.9 Type 2 diabetes mellitus without complications (principal) | CPT/HCPCS: 80053; 83036; 85025 ==

== ENCOUNTER 2024-03-27 06:51 | Outpatient (CLI) | payer MEDICARE, SELFPAY ==
--- NOTE | 2024-03-27 07:12 | ECG_ITS ---
[facility] Test Date: 2024-03-27 Pat Name: Jazmine Figueredo Department: Room: Gender: Female Director Project Management: David Solorio : 1960 Requested By: Jasen Wright Order Number: [id number] Hero MD: GUZMAN SANDOVAL Interpretive Statements NAME OF STUDY: LEXISCAN SESTAMIBI STRESS TEST INDICATION: [CP/SOB, ] NOTE: Please note that this is the electrocardiogram portion of the Lexiscan/Sestamibi stress test. The perfusion scan will be documented separately. DATA: Baseline heart rate was 59 beats per minute. Baseline blood pressure was 107/73 millimeters of mercury. Target heart rate was 155. Maximum heart rate achieved was 71. which was 45% of the predicted target heart rate. Maximum blood pressure was 133/73 millimeters of mercury. The reason for ending the test was completion of the protocol. The patient did not experience any symptoms. ELECTROCARDIOGRAM: BASELINE: Sinus rhythm. Normal axis. Poor R wave progression in the anterior lead cannot rule out old anterior wall myocardial infarction otherwise, early repolarization abnormality in the 1 and aVL at the baseline could be nonspecific EXERCISE: After Lexiscan injection, no ST-T changes more than what is present at the baseline suggestive of ischemic noted. No arrhythmia noted. CONCLUSION: Please note due to baseline abnormality of the EKG specificity and sensitivity of the EKG portion of LexiScan MIBI stress test will be low 1. EKG not suggestive of ischemia 2. Lexiscan injection unremarkable. 3. Perfusion scan will be documented separately. Electronically Signed On 03-27-2024 9:43:22 CDT by GUZMAN SANDOVAL [email or web address]
--- NOTE | 2024-03-27 07:13 | NMCV_ITS ---
NM tea perf SPECT r/s* [id number] Jazmine Figueredo Age: 64 Gender: F : 1960 Exam Date: 03/27/2024 07:13 Ordering Phys: Jasen Wright M.D ([email or web address]) Technologist: DAVID Moreno Exam Location: [facility] Indications: cp/sob STRESS TEST Please [facility] for [facility] IMAGE PROTOCOL Rest/Stress 1 Lexiscan Day Radiopharmaceutical Dose (mCi) Administration Site Administered by Rest: Tc-99m 11 IV DAVID Milian Sestamibi Stress:Tc-99m 31.9 IV DAVID Milian Sestamibi Rest: 03/27/2024 60 Discovery 630 Stress: 03/27/2024 30 Discovery 630 0.4mg Lexiscan. Images obtained in supine and prone position. SPECT RESULTS Technical Quality: Good Raw Data Analysis: Normal Image Corrections: No attenuation or motion correction applied Summed Stress Score: 0 Summed Rest Score: 0 Summed Difference Score: 0 PERFUSION FINDINGS SPECT images demonstrate homogeneous tracer distribution throughout the myocardium. FUNCTIONAL RESULTS (calculated via Gated SPECT) Stress Image LV EF (%): 71 Stress EDV (mL):97 TID: 0.96 Stress ESV (mL):28 FUNCTIONAL FINDINGS: There is normal left ventricular systolic function. IMPRESSIONS Myocardial perfusion imaging is normal. Corazon Coon MD (Electronically Signed) Final Date: 27 March 2024 11:47 S
[2024-03-27] MEDS: regadenoson 0.4 Mg/5 ml Syringe IVP (08:39)
[2024-03-27 08:49] VITALS: BP 122/52; PULSE 61
== END 2024-03-27 06:52 | disposition home or self-care (01) ==
PROVIDERS: PCP Clinical Nurse Specialist Adult Health; Visit Provider Internal Medicine
DX: R07.9 Chest pain, unspecified (principal); R06.02 Shortness of breath
CPT/HCPCS: 36415; 78452; 93017; 96374; A9500; J2785

== ENCOUNTER → 2024-04-23 07:54 | Outpatient (BNVA) | payer MEDICARE, SELFPAY | PROVIDERS: PCP Clinical Nurse Specialist Adult Health; Visit Provider Orthopaedic Surgery | DX: M54.2 Cervicalgia (principal); M47.22 Other spondylosis with radiculopathy, cervical region | CPT/HCPCS: 72040; 99213 ==

== ENCOUNTER → 2024-04-27 13:31 | Outpatient (BNVA) | payer MEDICARE, SELFPAY | PROVIDERS: PCP Family Medicine; Visit Provider Internal Medicine | DX: I11.0 Hypertensive heart disease with heart failure (principal); I50.32 Chronic diastolic (congestive) heart failure; E78.00 Pure hypercholesterolemia, unspecified; E11.9 Type 2 diabetes mellitus without complications; Z79.84 Long term (current) use of oral hypoglycemic drugs; G47.33 Obstructive sleep apnea (adult) (pediatric); Z87.891 Personal history of nicotine dependence | CPT/HCPCS: 99213 ==

== ENCOUNTER 2024-05-05 13:33 | Outpatient (RCR) | payer MEDICARE, SELFPAY | END 2024-05-14 23:59 | disposition home or self-care (01) | LOC: SPT 13:33 | PROVIDERS: PCP Family Medicine; Visit Provider Orthopaedic Surgery | DX: M54.2 Cervicalgia (principal); G89.29 Other chronic pain | CPT/HCPCS: 97161 ==

== ENCOUNTER 2024-05-15 06:00 | Outpatient (RCR) | payer MEDICARE, SELFPAY | END 2024-06-05 23:59 | disposition home or self-care (01) | LOC: SPT 06:00 | PROVIDERS: PCP Family Medicine; Visit Provider Orthopaedic Surgery | DX: M54.2 Cervicalgia (principal); G89.29 Other chronic pain | CPT/HCPCS: 97110 ==

== ENCOUNTER → 2024-08-19 11:15 | Outpatient (BNVA) | payer MEDICARE, SELFPAY | PROVIDERS: PCP Family Medicine; Visit Provider Family Medicine | DX: E11.9 Type 2 diabetes mellitus without complications (principal) | CPT/HCPCS: 80053; 80061; 83036 ==

== ENCOUNTER 2024-09-15 14:58 | Outpatient (CLI) | payer MEDICARE, SELFPAY ==
--- NOTE | 2024-09-15 15:30 | USCV_ITS ---
TerellRamiroa Age: 64 Gender: F : 1960 Exam Date: 09/15/2024 15:22 Ordering Phys: Dom Byrnes DO Technologist: ANYA Exam Location[place] [facility] [place] Indication: CAD. Risk Factors: Previous Vascular Surgery: Right Brachial BP: / Left Brachial BP: / Right Left Velocity (cm/s) Spectral Plaque Velocity (cm/s) Spectral Plaque Syst/Diast Broadening Syst/Diast Broadening 80.20/ 18.00 Prox CCA 83.60 / 23.30 73.70/ 19.30 Mid CCA 80.10 / 25.40 73.70/ 19.30 Distal CCA 67.40 / 21.70 61.50/ 15.00 Prox ICA 146.60/ 39.00 173.10/62.70 Mid ICA 141.40/ 51.80 163.60/28.10 Distal ICA 89.20 / 31.60 158.80 ECA 80.70 0.80 ICA/CCA 2.20 Antegrade Vertebral Antegrade 49.80/ 10.30 cm/s 38.60/ 11.00 cm/s Tri Subclavian Tri 101.6 159.8 0 0 FINDINGS Comparison: none available. Moderate obstructive lesions noted in the left internal carotid artery with extensive plaque. Mild plaque and no significant stenosis right ICA. Antegrade vertebral artery. CONCLUSIONS Left ICA stenosis 50-69%. Significant plaque in the bifurcation. Left ICA stenosis < 50%. Dr. Esther Luna DO (Electronically Signed) Final Date: 16 September 2024 08:53 S
== END 2024-09-15 14:59 | disposition home or self-care (01) ==
PROVIDERS: PCP Family Medicine; Visit Provider Family Medicine
DX: R09.89 Other specified symptoms and signs involving the circulatory and respiratory systems (principal); I77.9 Disorder of arteries and arterioles, unspecified; I65.23 Occlusion and stenosis of bilateral carotid arteries; S15.092A Other specified injury of left carotid artery, initial encounter; X58.XXXA Exposure to other specified factors, initial encounter
CPT/HCPCS: 93880

== ENCOUNTER 2024-11-11 07:23 | Outpatient (CLI) | payer MEDICARE, SELFPAY ==
--- NOTE | 2024-11-11 07:31 | CT_ITS ---
WS: [id number] CT ANGIOGRAM CEREBRAL AND CAROTID ARTERIES HISTORY: OCCLUSION STENOSIS OF BILATERAL CAROTID ARTERIES TECHNIQUE: CT angiogram is performed of the carotid and cerebral arteries. During arterial injection imaging is obtained from the skull vertex to the aortic arch in 1.25 mm imaging. Coronal and sagittal reformats are submitted. Additional multi planar reformats of the carotid and cerebral arteries are submitted, MIP imaging also reviewed. NASCET criteria utilized. All CT scans at [facility] use at least one of these dose optimization techniques: automated exposure control; mA and/or kV adjustment per patient size (includes targeted exams where dose is matched to clinical indication); or iterative reconstruction. CONTRAST: Omnipaque 350; 100 mL IV. DLP: 1203.00 mGy.cm COMPARISON: Carotid ultrasound 09/15/[address] head is first performed. No intracranial hemorrhage or edema. Carotid Angiogram: Right carotid: Common carotid artery: Arises normally from the innominate artery. Scattered plaque. Internal carotid artery: Focal plaque at the bifurcation plaque extends over a length of several centimeters. The at the level of the distal ICA plaque there is a high-grade stenosis. Stenosis calculated at 75%. Visually the stenosis may be greater than 75%. External carotid artery: Patent. Left carotid: Common carotid artery: Arises normally from the aorta. Scattered plaque. Circumferential plaque distal cervical carotid artery. Internal carotid artery: Dense calcified plaque encasing the proximal ICA. Plaque extends over a length of several centimeters with stenosis calculated at 91%. External carotid artery: Patent. Right vertebral artery: Mild scattered plaque. Codominant. Left vertebral artery: Codominant. No stenosis. Subclavian arteries: No stenosis or significant abnormality. Upper thorax: Paraseptal emphysema at the lung apices. Moderate plaque through the aortic arch. Thyroid gland: Normal. Osseous structures: Prior anterior cervical fusion from C4-C7. Interbody spacers at C4-5 and C6-7. Corpectomy cage at C5-6. CEREBRAL ANGIOGRAM: Intracranial vertebral arteries: Normal with no significant atherosclerosis. Basilar artery: No significant stenosis or occlusion. No aneurysm. Intracranial Internal carotid arteries: Mild plaque of the carotid cavernous sinuses, slightly greater on the LEFT. Stenosis near 50%. Middle cerebral arteries: Normal. Anterior cerebral arteries and ACOM: Normal. Posterior cerebral arteries and PCOM's: Normal. Dural venous sinuses are normal. There are few filling defects of the arachnoid granulations. Smaller caliber LEFT transverse sinus. Mastoid air cells: Normal. Paranasal sinuses: Normal. Calvarium: Normal. CT/CT angio headneck* [id number] IMPRESSION: 1. RIGHT cervical ICA stenosis calculated at 75%. Visually the stenosis may be slightly greater. 2. LEFT cervical ICA stenosis 91%. 3. Intact afognak of B[place]. No aneurysms. 4. Codominant vertebral arteries with minimal plaque.
[2024-11-11 08:59] LABS: Blood Urea Nitrogen 15 mg/dL (8-23); Glomerular Filtration Rate 62.8 mL/min (90-130)
[2024-11-11] MEDS: iohexol 350 mg/mL 500 mL Btl (per mL) IV (09:26)
== END 2024-11-11 07:24 | disposition home or self-care (01) ==
PROVIDERS: Radiology Neuroradiology; PCP Family Medicine; Visit Provider Surgery
DX: I65.23 Occlusion and stenosis of bilateral carotid arteries (principal); J43.8 Other emphysema; I70.0 Atherosclerosis of aorta; Z98.1 Arthrodesis status; Z96.89 Presence of other specified functional implants
CPT/HCPCS: 70496; 70498; 82565; 84520

== ENCOUNTER 2024-11-24 11:06 | Outpatient (CLI) | payer MEDICARE, SELFPAY ==
--- NOTE | 2024-11-24 11:15 | CT_ITS ---
WS: [id number] LDCT LUNG CANCER SCREENING HISTORY: Z87.891 - Personal history of nicotine dependence TECHNIQUE: Axial imaging performed from the apices to 1 cm below the costophrenic angles. Coronal and sagittal reformats are submitted with axial MIP series. All CT scans at [facility] use at least one of these dose optimization techniques: automated exposure control; mA and/or kV adjustment per patient size (includes targeted exams where dose is matched to clinical indication); or iterative reconstruction. DLP: 65.01 mGy.cm DIvol: Mean CTDIvol: 1.40 (mGy) COMPARISON: 10/29/2023 Diagnostic quality: Satisfactory Lungs: Noncalcified fissural nodule RIGHT short fissure. LEFT upper lobe micronodule is not identified on today's exam which may be due to its small size and slice selection. No mass or pneumonia. Heart: Normal size heart with no pericardial effusion.. Moderate scattered coronary artery calcifications. Other findings: Moderate atherosclerotic plaque aorta. Normal size pulmonary artery. No pathologically enlarged lymph nodes. Small hiatal hernia. Prior cholecystectomy. No destructive bone lesions. CT/CT lung screening [id number] IMPRESSION: LUNG-RADS: 2-Benign Appearance or Behavior FOLLOW UP: 12 Month: Continue annual screening with LDCT OTHER FINDINGS (S MODIFIER): None.
== END 2024-11-24 11:07 | disposition home or self-care (01) ==
PROVIDERS: PCP Family Medicine; Visit Provider Family Medicine
DX: Z12.2 Encounter for screening for malignant neoplasm of respiratory organs (principal); Z87.891 Personal history of nicotine dependence; R91.1 Solitary pulmonary nodule; I70.0 Atherosclerosis of aorta; K44.9 Diaphragmatic hernia without obstruction or gangrene; Z90.49 Acquired absence of other specified parts of digestive tract
CPT/HCPCS: 71271

== ENCOUNTER → 2024-12-14 10:40 | Outpatient (BNVA) | payer MEDICARE, SELFPAY | PROVIDERS: PCP Family Medicine; Visit Provider Family Medicine | DX: I10 Essential (primary) hypertension (principal); E11.9 Type 2 diabetes mellitus without complications | CPT/HCPCS: 80048; 82607; 83036 ==

== ENCOUNTER → 2025-03-29 09:00 | Outpatient (BNVA) | payer MEDICARE, SELFPAY | PROVIDERS: Visit Provider Family Medicine | DX: R79.89 Other specified abnormal findings of blood chemistry (principal); I10 Essential (primary) hypertension; E11.9 Type 2 diabetes mellitus without complications; Z79.02 Long term (current) use of antithrombotics/antiplatelets | CPT/HCPCS: 80053; 82607; 83036; 85025 ==

== ENCOUNTER 2025-03-31 12:53 | Outpatient (RCR) | payer MEDICARE, SELFPAY | END 2025-04-13 23:59 | disposition home or self-care (01) | LOC: SST 12:53 | PROVIDERS: Visit Provider Surgery | DX: R49.0 Dysphonia (principal) | CPT/HCPCS: 92507; 92610 ==

== ENCOUNTER 2025-04-14 05:00 | Outpatient (RCR) | payer MEDICARE, SELFPAY | END 2025-05-14 23:59 | disposition home or self-care (01) | LOC: SST 05:00 | PROVIDERS: Visit Provider Surgery | DX: R49.0 Dysphonia (principal) | CPT/HCPCS: 92507 ==

== ENCOUNTER → 2025-04-26 13:09 | Outpatient (BNVA) | payer MEDICARE, SELFPAY | PROVIDERS: Visit Provider Internal Medicine | DX: I10 Essential (primary) hypertension (principal); E78.00 Pure hypercholesterolemia, unspecified; E11.9 Type 2 diabetes mellitus without complications; I77.9 Disorder of arteries and arterioles, unspecified; Z98.890 Other specified postprocedural states; Z79.85 Long-term (current) use of injectable non-insulin antidiabetic drugs | CPT/HCPCS: 99214 ==

== ENCOUNTER 2025-05-15 05:00 | Outpatient (RCR) | payer MEDICARE, SELFPAY | END 2025-06-13 23:59 | disposition home or self-care (01) | LOC: SST 05:00 | PROVIDERS: Visit Provider Surgery | DX: R49.0 Dysphonia (principal) | CPT/HCPCS: 92507 ==

== ENCOUNTER 2025-06-14 06:30 | Outpatient (RCR) | payer MEDICARE, SELFPAY | END 2025-06-16 10:59 | disposition home or self-care (01) | LOC: SST 06:30 | PROVIDERS: Visit Provider Surgery | DX: R49.0 Dysphonia (principal); R13.13 Dysphagia, pharyngeal phase; I65.22 Occlusion and stenosis of left carotid artery | CPT/HCPCS: 92507 ==